=== PATIENT | female | born 1965 | race Caucasian/White ===

== ENCOUNTER 2018-07-16 15:56 | Emergency (ER) | payer MEDICAID ==
[~2018-07-16] VITALS: Ht 154.9 cm; Wt 57.7 kg
[2018-07-16 16:10] VITALS: BP 118/87
--- NOTE | 2018-07-16 17:15 | NUR ---
PT AMBULATED TO BED 11
--- NOTE | 2018-07-16 17:20 | NUR ---
53YO F BIB SELF FOR GENERLIZED BODY ACHESX 2 DAYS. PT STATES SOB WITH DRY NON PRODUACTIVE COUGH. LS CLEAR THROUGHOUT, ABD SOFT NON TENDER, PT DENIES ANY CP, N/V/D, FEVERS, STATES CHILLS. ER MADE AWARE. WILL CONTINUE TO MONIOTOR
[2018-07-16] MEDS ORDERED: NACL 0.9% 500 ML IV ONE (17:45)
[2018-07-16] MEDS ORDERED: KETOROLAC 30 MG/ML VIAL IVP ONE (17:45)
[2018-07-16 18:37] VITALS: BP 118/86
--- NOTE | 2018-07-16 18:37 | NUR ---
Patient discharged with v/s stable. Written and verbal after care instructions given and explained. Patient alert, oriented and verbalized understanding of instructions. Ambulatory with steady gait. All questions addressed prior to discharge. ID band removed. Patient advised to follow up with PMD. Rx of TAMIFLU given. Patient educated on indication of medication including possible reaction and side effects. Opportunity to ask questions provided and answered.
== END 2018-07-16 18:37 | disposition home or self-care (01) ==
LOC: MED 15:56
DX: J11.1 Influenza due to unidentified influenza virus with other respiratory manifestations (principal); J45.909 Unspecified asthma, uncomplicated; Z98.84 Bariatric surgery status
CPT/HCPCS: 81002; 81025; 96374; 99284; J1885; J7030

== ENCOUNTER 2019-02-28 07:55 | Emergency (ER) | payer MEDICAID ==
[~2019-02-28] VITALS: Ht 154.9 cm; Wt 59.9 kg
[2019-02-28 08:00] VITALS: BP 126/77
--- NOTE | 2019-02-28 08:00 | NUR ---
PT BIB SELF WITH C/O UNABLE TO SLEEP FOR LAST ONE WEEK. DENIES SOB, CHEST PAIN, NAUSEA, FEVER OR VOMITING. PT AAOX4, ABLE TO MAKE HER NEEDS KNOWN. STATES TO HAVE DOEN DENTAL WORK 4 CDAYS AGO, TAKING AMOXICILIN SINCE LAST 4 DAYS. ER Afshin Fuentes TO SEE THE PT.
--- NOTE | 2019-02-28 08:05 | NUR ---
Patient ambulated to bed 6. RN evaluating patient at bedside.
--- NOTE | 2019-02-28 08:26 | NUR ---
Dr. Mays evaluating patient at bedside.
[2019-02-28] MEDS ORDERED: LORazepam 2 MG/ML VIAL IM ONE (08:40)
[2019-02-28] MEDS ORDERED: hydrOXYzine HCL 25 MG TAB PO ONE (08:40)
[2019-02-28 09:53] LABS: BARBITURATE, URINE NEG. ng/ml (NEG <=200); BENZODIAZEPINE, URINE POS. ng/mL (NEG <=200); CANNABINOID, URINE NEG. ng/mL (NEG <=50); COCAINE, URINE NEG. ng/mL (NEG <=300); OPIATE, URINE NEG. ng/mL (NEG <=2000); PHENCYCLIDINE SCREEN,URINE NEG. ng/mL (NEG <=25)
--- NOTE | 2019-02-28 10:00 | NUR ---
PT ASKING IF SHE CAN GO HOME, MADE AWARE. STATES WILL DISCHARGE HER. PT NOTIFIED DR. ANDRES WORKING ON PTS DISCHARGE.
[2019-02-28 10:21] VITALS: BP 113/72
--- NOTE | 2019-02-28 10:21 | NUR ---
PT WALKED SELF TO THE CAR. STAEDY GAIT. STATES CAN DRIVE. WHEELED HER MOTHER TO CAR. PT VS STABLE AT DISCHARGE.
--- NOTE | 2019-02-28 10:21 | NUR ---
Patient discharged with v/s stable. Written and verbal after care instructions given and explained. Patient alert, oriented and verbalized understanding of instructions. Ambulatory with steady gait. All questions addressed prior to discharge. ID band removed. Patient advised to follow up with PMD. Rx oF VISTARIL given. Patient educated on indication of medication including possible reaction and side effects. Opportunity to ask questions provided and answered.
== END 2019-02-28 10:21 | disposition home or self-care (01) ==
LOC: MED 07:55
DX: G47.00 Insomnia, unspecified (principal); J45.909 Unspecified asthma, uncomplicated; F15.10 Other stimulant abuse, uncomplicated
CPT/HCPCS: 80305; 81002; 81025; 96372; 99283; J2060

== ENCOUNTER 2019-03-02 15:17 | Inpatient (IN) | payer MEDICAID ==
[~2019-03-02] VITALS: Ht 154.9 cm; Wt 54.4 kg
[2019-03-02 15:21] VITALS: BP 124/86
--- NOTE | 2019-03-02 15:25 | NUR ---
pt ambulated to er bed 04
--- NOTE | 2019-03-02 15:27 | NUR ---
53 Y FEMALE BIB SELF C/O NECK PAIN SINCE LAST NIGHT. PAIN 06/13. DENIES TRAUMA OR INJURY. +ROM. VSS AT THIS TIME. PT AA0X4. BED IS DOWN, LOCKED, BED RAIL X 1, ERMD TO SEE PT. PMH- ANXIETY, ASTHMA
--- NOTE | 2019-03-02 15:56 | NUR ---
mom at bedside
--- NOTE | 2019-03-02 16:35 | NUR ---
PT GOING TO CT VIA WHEELCHAIR
--- NOTE | 2019-03-02 16:54 | NUR ---
LABS DRAWN AT BEDSIDE AND GIVEN TO HOISTING MACHINE OPERATOR
[2019-03-02 17:08] LABS: HEMOGLOBIN 7.9 g/dL (12.0-16.0); LYMPHOCYTES # (AUTO) 0.5 K/uL (2.5-16.5); MEAN CORPUSCULAR VOLUME 68.1 fL (80-94); MONOCYTES # (AUTO) 0.2 K/uL (0.8-1.0)
[2019-03-02] MEDS ORDERED: AMOX500C25 PO (17:12)
[2019-03-02 17:14] LABS: BASOPHILS % (AUTO) 0.3 % (0.0-2.0); LYMPHOCYTES % (AUTO) 13.4 % (20.5-51.1); MEAN CORPUSCULAR HEMOGLOBIN 21 pg (27-31); MEAN CORPUSCULAR HGB CONC 31 g/dL (33-37); MONOCYTES % (AUTO) 4.9 % (1.7-9.3); NEUTROPHILS # (AUTO) 3.3 K/uL (1.8-7.7); NEUTROPHILS % (AUTO) 81.4 % (42.2-75.2); PLATELET COUNT (AUTO) 319 K/uL (140-450); RED BLOOD CELL COUNT(AUTO) 3.82 MIL/uL (4.20-5.40); RED CELL DISTRIBUTION WIDTH 17.4 % (11.6-13.7)
[2019-03-02 17:20] LABS: WHITE BLOOD COUNT (AUTO) 4.1 K/uL (4.8-10.8)
[2019-03-02 17:21] LABS: ANION GAP 15.7 (8-16); CARBON DIOXIDE 24.7 mmol/L (21-32); CREATININE 0.9 mg/dL (0.6-1.3); POTASSIUM 4.4 mmol/L (3.5-5.1)
[2019-03-02 17:27] LABS: ALBUMIN 3.7 g/dL (3.4-5.0); TOTAL BILIRUBIN 0.2 mg/dL (0.0-1.0)
--- NOTE | 2019-03-02 17:27 | NUR ---
VSS AT THIS TIME. PT AA0X4. SITTING IN BED WORKING ON WORD SEARCHES.
--- NOTE | 2019-03-02 17:38 | NUR ---
CHAPPERONED DR AT BEDSIDE FOR EXAM
[2019-03-02] MEDS ORDERED: fentaNYL 0.05 MG/ML VIAL IVP ONE (17:45)
[2019-03-02] MEDS ORDERED: methylPREDNISolone SS 125 MG/2 ML VIAL IVP ONE (17:55)
[2019-03-02] MEDS ORDERED: diphenhydrAMINE 50 MG/ML VIAL IVP ONE (17:55)
--- NOTE | 2019-03-02 18:00 | NUR ---
SIGNED CONSENT FORM FOR CT
--- NOTE | 2019-03-02 18:14 | NUR ---
[facility]
--- NOTE | 2019-03-02 18:24 | NUR ---
PT RETURNED FROM CT. PT AA0X4
--- NOTE | 2019-03-02 19:12 | NUR ---
NO ADVERSE REACTIONS AT THIS TIME. PT AA0X4. VSS AT THIS TIME.
[2019-03-02] MEDS ORDERED: LORazepam 2 MG/ML VIAL IM/IVP PRN (20:10)
[2019-03-02] MEDS ORDERED: DOCUSATE SODIUM 100 MG GELCAP PO PRN (20:10)
[2019-03-02] MEDS ORDERED: ONDANSETRON 4 MG/2 ML VIAL IM/IVP PRN (20:10)
[2019-03-02] MEDS ORDERED: ACETAMINOPHEN 325 MG TAB PO PRN (20:10)
[2019-03-02] MEDS: HYDROcodone/APAP 5/325 MG 1 TAB TAB PO PRN (20:32)
--- NOTE | 2019-03-02 20:33 | NUR ---
PT CO 5/10 PAIN. NORCO ADMINISTERED PO.
--- NOTE | 2019-03-02 20:46 | NUR ---
PATIENT ARRIVED, AMBULATORY TO BED, SKIN INTACT, IV IN LEFT AC 20 G, DRESSING SLIGHTLY BLOODY, BUT PATENT. V/S TAKEN BP 144/79 HR 76 TEMP 99.5 RR 14 EVEN AND NONLABORED, LUNG SOUNDS CLEAR, PATIENT REQUESTED BREATHING TREATMENT O2 SAT 99% ON RA. MRSA SCREEN COLLECTED AND SENT TO LAB, ADMISSION QUESTIONS ANSWERED, CALL LIGHT WITHIN REACH.
[2019-03-02 20:48] VITALS: BP 144/79
--- NOTE | 2019-03-02 20:50 | NUR ---
Patient will be admitted to care of [facility]. Admited to TELE. Will go to room 106B. Belongings list completed. Report to MERCEDES MCKEON.
[2019-03-02 20:58] LABS: PROTHROMBIN TIME 9.8 secs (10.8-13.4)
[2019-03-02 21:01] LABS: APPEARANCE,URINE CLEAR (CLEAR); BILIRUBIN,URINE NEGATIVE (NEGATIVE); BLOOD, URINE NEGATIVE (NEGATIVE); COLOR,URINE YELLOW (YELLOW); LEUKOCYTE ESTERASE ,URINE TRACE (NEGATIVE); NITRITE, URINE NEGATIVE (NEGATIVE); UGLUCOSE NEGATIVE (NEGATIVE)
[2019-03-02 21:18] LABS: MAGNESIUM 2.3 mg/dL (1.8-2.4); THYROID STIMULATING HORMONE 0.27 uIU/mL (0.34-3.74)
[2019-03-02 21:19] LABS: BARBITURATE, URINE NEGATIVE ng/ml (NEG <=200); BENZODIAZEPINE, URINE NEGATIVE ng/mL (NEG <=200); CANNABINOID, URINE NEGATIVE ng/mL (NEG <=50); COCAINE, URINE NEGATIVE ng/mL (NEG <=300); OPIATE, URINE NEGATIVE ng/mL (NEG <=2000); PHENCYCLIDINE SCREEN,URINE NEGATIVE ng/mL (NEG <=25)
[2019-03-02 21:32] LABS: RBC,URINE 0 /HPF (0-5); WBC,URINE 0-5 /HPF (0-5)
[2019-03-02 21:47] LABS: PHOSPHORUS 4.3 mg/dL (2.5-4.9)
[2019-03-02] MEDS ORDERED: LORA-476 PO (21:47)
[2019-03-02] MEDS ORDERED: SODIUM FERRIC GLUCONATE 125 MG in NACL 0.9% 100 ML IV SCH (22:10)
[2019-03-02] MEDS ORDERED: ASCORBIC ACID 500 MG TAB PO SCH (22:25)
[2019-03-02] MEDS ORDERED: NITROGLYCERIN 0.4 MG TAB SL PRN (22:35)
[2019-03-02] MEDS: ALBUTEROL SULFATE/IPRATROPIU 3 ML SOL IH PRN (22:39)
[2019-03-02] MEDS: MORPHINE SULFATE 2 MG/ML SYR IVP PRN (22:58)
--- NOTE | 2019-03-02 22:58 | NUR ---
GAVE MORPHINE FOR SEVERE PAIN, ADMINISTERED NS AT 60 ML/HR. EXPLAINED TO PATIENT OF NEED FOR OCCULT BLOOD, LEFT HAT IN TOILET
[2019-03-02] MEDS: SODIUM FERRIC GLUCONATE 12.5 MG/ML AMP IV ONE ×2 (22:59→23:00)
[2019-03-02] MEDS: NACL 0.9% 1,000 ML IV SCH (22:59)
--- NOTE | 2019-03-02 23:57 | NUR ---
FERRLECIT INFUSING WILL GIVE ROCEPHIN ONCE COMPLETED
[2019-03-03] VITALS: BP 135/68
[2019-03-03] MEDS ORDERED: cefTRIAXone 1,000 MG VIAL ONE (01:52)
--- NOTE | 2019-03-03 01:55 | NUR ---
DUE ROCEPHIN GIVEN
[2019-03-03] MEDS: ALBUTEROL SULFATE/IPRATROPIU 3 ML SOL IH PRN ×2 (02:35→10:11)
--- NOTE | 2019-03-03 03:12 | NUR ---
PATIENT C/O PAIN WILL GIVE MORPHINE
[2019-03-03] MEDS: MORPHINE SULFATE 2 MG/ML SYR IVP PRN (03:30)
[2019-03-03 04:00] VITALS: BP 129/86
--- NOTE | 2019-03-03 05:19 | NUR ---
SCD APPLIED, EDUCATION PROVIDED
--- NOTE | 2019-03-03 06:00 | NUR ---
EKG DONE RT AT BEDSIDE
[2019-03-03 07:17] LABS: CARBON DIOXIDE 23.6 mmol/L (21-32); CREATININE 0.9 mg/dL (0.6-1.3); POTASSIUM 4.6 mmol/L (3.5-5.1)
[2019-03-03 07:24] LABS: CHOL/HDL RATIO 2.9 (1-4.5)
--- NOTE | 2019-03-03 07:24 | NUR ---
ENDORSED PATIENT TO DAY SHIFT NURSE NILDA, PATIENT STABLE
[2019-03-03 07:54] LABS: BASOPHILS % (AUTO) 0.2 % (0.0-2.0); HEMATOCRIT 24.9 % (36-48); HEMOGLOBIN 7.6 g/dL (12.0-16.0); LYMPHOCYTES # (AUTO) 0.5 K/uL (2.5-16.5); LYMPHOCYTES % (AUTO) 11.2 % (20.5-51.1); MEAN CORPUSCULAR HEMOGLOBIN 21 pg (27-31); MEAN CORPUSCULAR HGB CONC 30 g/dL (33-37); MEAN CORPUSCULAR VOLUME 68.3 fL (80-94); MONOCYTES # (AUTO) 0.2 K/uL (0.8-1.0); MONOCYTES % (AUTO) 4.2 % (1.7-9.3); NEUTROPHILS % (AUTO) 84.4 % (42.2-75.2); PLATELET COUNT (AUTO) 295 K/uL (140-450); RED BLOOD CELL COUNT(AUTO) 3.65 MIL/uL (4.20-5.40); RED CELL DISTRIBUTION WIDTH 17.1 % (11.6-13.7); WHITE BLOOD COUNT (AUTO) 4.7 K/uL (4.8-10.8)
[2019-03-03 08:00] VITALS: BP 128/75
[2019-03-03] MEDS ORDERED: FERROUS SULFATE 325 MG TABEC PO SCH (08:00)
[2019-03-03] MEDS: LACTOBACILLUS RHAMNOSUS GG 1 EACH CAP PO SCH (08:09)
[2019-03-03] MEDS: HYDROcodone/APAP 5/325 MG 1 TAB TAB PO PRN (08:10)
[2019-03-03] MEDS: ASCORBIC ACID 500 MG TAB PO SCH (08:16)
--- NOTE | 2019-03-03 08:29 | NUR ---
RECEIVED BED SIDE REPORT FROM SENIOR PROJECT MANAGER RN SUMMER. PT AWAKE, ON RA IN NO RESPIRATORY DISTRESS. PT MADE AWARE OF OCCULT BLOOD NEEDS TO BE COLLECTED. HAT AND SPECIMEN CUP IN BATHROOM. L AC 20G NS AT 60ML/HR. WILL CONTINUE TO MONITOR
[2019-03-03] MEDS ORDERED: ASPIRIN 81 MG TAB.CHEW PO SCH (09:00)
[2019-03-03] MEDS ORDERED: ASCORBIC ACID 500 MG TAB PO SCH (09:00)
[2019-03-03] MEDS ORDERED: LISINOPRIL 5 MG TAB PO SCH (09:00)
[2019-03-03] MEDS ORDERED: METOPROLOL 25 MG TAB PO SCH (09:00)
--- NOTE | 2019-03-03 09:15 | NUR ---
PT STILL COMPLAINS ON 04/13 SHARP NECK PAIN. PT STATED THAT NORCO DID NOT HELP. NOTIFIED ABOUT PT. NO CHANGE IN ORDERS
--- NOTE | 2019-03-03 11:05 | NUR ---
ORDERED TORADOL AFTER TELLING HIM THAT PT'S PAIN DOES NOT GO AWAY WITH MORPHINE OR NORCO. WILL GIVE PER MD ORDER. PT STILL COMPLAINING OF 8/10 SHARP NECK PAIN RADIATING TO OTHER SIDE OF NECK. DENIES CHEST PAIN
[2019-03-03] MEDS ORDERED: KETOROLAC 15 MG/ML VIAL IM SCH (11:30)
[2019-03-03 12:00] VITALS: BP 130/69
[2019-03-03] MEDS: NACL 0.9% 1,000 ML IV SCH (12:16)
--- NOTE | 2019-03-03 12:26 | NUR ---
GAVE TORADOL PER MD ORDER. WILL RE-ASSESS PAIN WITHIN 1 HOUR
--- NOTE | 2019-03-03 13:06 | NUR ---
[facility] REFERRAL RECEIVED ON 03/03/19 FOR UNKNOWN REASON AND N/A NUTRITIONAL HISTORY PER RN INITIAL ASSESSMENT NOTES. REFERRAL REASON DOES NOT MEET HIGH RISK CRITERIA PER HOSPITAL POLICY. PATIENT WILL BE SEEN AND ASSESSED ACCORDING TO THE NUTRITION CARE POLICY. PATIENT HAS BEEN SCREENED AND CATEGORIZED MODERATE NUTRITION RISK. PATIENT WILL BE SEEN WITHIN 3-5 DAYS OF ADMISSION. 03/05/19DAVID AYALA MBA, RD
[2019-03-03] MEDS ORDERED: oxyCODONE/APAP 5/325 MG 1 TAB TAB PO PRN (13:40)
[2019-03-03] MEDS: ALBUTEROL SULFATE/IPRATROPIU 3 ML SOL IH SCH ×2 (13:51→19:55)
[2019-03-03] MEDS ORDERED: SODIUM FERRIC GLUCONATE 125 MG in NACL 0.9% 100 ML IV SCH (15:00)
[2019-03-03 16:00] VITALS: BP 109/56
[2019-03-03] MEDS: SENNA 8.6 MG TAB PO SCH ×2 (16:33→21:00)
[2019-03-03] MEDS: LACTULOSE 20 GM/30 ML UDC PO SCH (16:34)
[2019-03-03] MEDS: METOCLOPRAMIDE 10 MG/2 ML INJ VIAL IVP SCH ×2 (16:34→22:19)
--- NOTE | 2019-03-03 16:49 | NUR ---
PT MADE AWARE THAT SHE WILL HAVE ECG AND COLONOSCOPY TOMORROW. PT ON CLEAR LIQUID DIET. NPO FOR BREAKFAST. GAVE SENNA AND LACTULOSE PER MD ORDER
--- NOTE | 2019-03-03 19:15 | NUR ---
RECEIVED BEDSIDE REPORT FROM DAY SHIFT NURSE. PATIENT IS AWAKE, ALERT, AND COOPERATIVE. RESPIRATION EVEN UNLABORED ON ROOM AIR. NO DISTRESS NOTED. SKIN IS WARM AND DRY. IV PATENT AND INTACT. DENIES PAIN. PATIENT IS AMBULATORY AND ABLE TO MAKE NEEDS KNOWN. PLAN OF CARE WAS DISCUSSED. ALL SAFETY MEASURES IN PLACE. BED IS AT LOW POSITION. CALL LIGHT WITHIN REACH AND VERBALIZES ITS USE. WILL CONTINUE TO MONITOR.
--- NOTE | 2019-03-03 19:36 | NUR ---
GAVE BED SIDE REPORT FROM SALES REPRESENTATIVE PUBLICATIONS LINDA MONK. PT IN STABLE CONDITION
[2019-03-03 20:00] VITALS: BP 109/66
--- NOTE | 2019-03-03 20:00 | NUR ---
INITIAL ASSESSMENT DONE. VITALS WERE TAKEN. NO DISTRESS NOTED. WILL CONTINUE TO MONITOR.
[2019-03-03] MEDS: SUPREP BOWEL PREP KIT 354 ML SOLN.RECON PO SCH (20:45)
[2019-03-03] MEDS ORDERED: ATORVASTATIN 20 MG TAB PO SCH (21:00)
[2019-03-03] MEDS ORDERED: ZOLPIDEM 5 MG TAB PO SCH (21:00)
--- NOTE | 2019-03-03 21:00 | NUR ---
ALL SCHEDULED MEDS WERE GIVEN PER ORDER. PATIENT REFUSED SENNA MEDS. PER PATIENT SHE'S WANTS HER MEDS TO BE IN IV FORM. DR. THOMPSON (RESIDENT) IS AWARE OF THE SITUATION. NO NEW ORDERS. WILL CONTINUE TO MONITOR.
--- NOTE | 2019-03-03 22:00 | NUR ---
ENCOURAGE PATIENT TO FINISH HER BOWEL PREP MEDICINE. WILL CONTINUE TO MONITOR.
--- NOTE | 2019-03-03 23:40 | NUR ---
PATIENT TOOK OF HER SCD'S AT THIS MOMENT. EDUCATE THE RISK AND BENEFITS OF IT X2 STILL REFUSED. WILL CONTINUE TO MONITOR
[2019-03-04] VITALS: BP 105/64
--- NOTE | 2019-03-04 | NUR ---
VITALS WERE TAKEN. PATIENT CONDITION STABLE. NO DISTRESS NOTED. WILL CONTINUE TO MONITOR
--- NOTE | 2019-03-04 02:00 | NUR ---
CHECKED PATIENT. PATIENT SLEEPING RESPIRATION EVEN UNLABORED ON ROOM AIR. NO DISTRESS NOTED. WILL CONTINUE TO MONITOR.
[2019-03-04 04:00] VITALS: BP 100/64
--- NOTE | 2019-03-04 04:00 | NUR ---
VITALS WERE TAKEN. PATIENT CONDITION STABLE. PATIENT HAD 4 BOWEL MOVEMENTS AFTER TAKING THE BOWEL PREP KIT. WILL CONTINUE TO MONITOR.
[2019-03-04] MEDS: NACL 0.9% 1,000 ML IV SCH (05:30)
[2019-03-04] MEDS: METOCLOPRAMIDE 10 MG/2 ML INJ VIAL IVP SCH (06:02)
[2019-03-04 07:07] LABS: BASOPHILS % (AUTO) 0.4 % (0.0-2.0); EOSINOPHILS % (AUTO) 0.4 % (0.0-4.0); HEMATOCRIT 24.4 % (36-48); HEMOGLOBIN 7.4 g/dL (12.0-16.0); LYMPHOCYTES # (AUTO) 2.1 K/uL (2.5-16.5); LYMPHOCYTES % (AUTO) 42.1 % (20.5-51.1); MEAN CORPUSCULAR HEMOGLOBIN 21 pg (27-31); MEAN CORPUSCULAR HGB CONC 30 g/dL (33-37); MEAN CORPUSCULAR VOLUME 69.2 fL (80-94); MONOCYTES # (AUTO) 0.4 K/uL (0.8-1.0); NEUTROPHILS # (AUTO) 2.4 K/uL (1.8-7.7); NEUTROPHILS % (AUTO) 49.1 % (42.2-75.2); PLATELET COUNT (AUTO) 267 K/uL (140-450); RED BLOOD CELL COUNT(AUTO) 3.52 MIL/uL (4.20-5.40); RED CELL DISTRIBUTION WIDTH 18.1 % (11.6-13.7)
[2019-03-04 07:10] LABS: ANION GAP 14.1 (8-16); CARBON DIOXIDE 24.9 mmol/L (21-32); CREATININE 0.9 mg/dL (0.6-1.3)
[2019-03-04] MEDS: ALBUTEROL SULFATE/IPRATROPIU 3 ML SOL IH SCH ×2 (07:11→13:40)
[2019-03-04 07:22] LABS: PHOSPHORUS 4.5 mg/dL (2.5-4.9)
--- NOTE | 2019-03-04 07:23 | NUR ---
ENDORSED PATIENT TO DAY SHIFT NURSE. PATIENT CONDITION STABLE AT THIS TIME.
--- NOTE | 2019-03-04 07:25 | NUR ---
RECEIVED REPORT FROM HYDROELECTRIC PLANT STRUCTURAL ENGINEER NURSE. PT AWAKE, LYING IN BED, ORIENTED X4. RESPIRATIONS EVEN AND UNLABORED ON RA. IV ON LT AC 20 GA RUNNING IVF PER ORDER, DRESSING CLEAN, INTACT AND DRY. RADIAL PULSE 107, REGULAR AND EVEN. BOWEL SOUNDS ACTIVE, LBM 7/1, STOOL COLOR REPORTED "BROWN AND LIQUID." SKIN COLOR IS APPROPRIATE TO ETHNICITY, WARM TO TOUCH, SKIN IS INTACT. NO EDEMA NOTED TO EXTREMITIES. REVIEWED POC WITH PT, PT VERBALIZED UNDERSTANDING. WILL CONTINUE TO MONITOR.
[2019-03-04 08:00] VITALS: BP 100/64
[2019-03-04] MEDS: LACTULOSE 20 GM/30 ML UDC PO SCH ×2 (08:16→13:00)
[2019-03-04] MEDS: SENNA 8.6 MG TAB PO SCH ×2 (08:17→13:00)
[2019-03-04] MEDS: SUPREP BOWEL PREP KIT 354 ML SOLN.RECON PO SCH ×2 (08:20→09:00)
[2019-03-04] MEDS: LACTOBACILLUS RHAMNOSUS GG 1 EACH CAP PO SCH (08:22)
[2019-03-04] MEDS: ASCORBIC ACID 500 MG TAB PO SCH (08:22)
--- NOTE | 2019-03-04 08:24 | NUR ---
DOCTOR AT BEDSIDE. PT REFUSING VIT C, LACTOBACILLUS, AND NORCO FOR PAIN. REQUESTED IV MED FOR PAIN. AWAITING FOR ORDERS. PT VERBALIZED "I DON'T LIKE DRINKING ANYTHING LIQUID, I DON'T WANT TO DRINK THAT ANYMORE" REFERRING TO SUPREP BOWEL PREP AND LACTULOSE. EXPLAINED TO PT THAT IT IS NEEDED FOR THE PROCEDURE LATER TODAY. PT STILL REFUSES DESPITE BENEFITS EXPLAINED. ENCOURAGED TO DRINK A LITTLE AT A TIME. LEFT SUPREP BOWEL PREP IN PT BEDSIDE. WILL REASSESS AT A LATER TIME.
[2019-03-04 09:05] LABS: MAGNESIUM 2.2 mg/dL (1.8-2.4)
[2019-03-04] MEDS ORDERED: KETOROLAC 15 MG/ML VIAL IVP PRN (09:10)
[2019-03-04] MEDS ORDERED: MORPHINE SULFATE 2 MG/ML SYR IVP PRN (09:10)
--- NOTE | 2019-03-04 09:30 | NUR ---
P.T. NOTES UNABLE TO DO EVAL DUE TO HER REFUSAL. STATES: "I'M A PHYSICAL THERAPIST WELL AND I DON'T NEED THERAPY!" HER NURSE ADAM AND CHARGE NURSE WAS MADE AWARE.
--- NOTE | 2019-03-04 09:30 | NUR ---
PT IS REFUSING TO WALK WITH PT. REVIEWED BENEFITS WITH PT, BUT STILL REFUSING.
--- NOTE | 2019-03-04 09:36 | NUR ---
PT REPORTED THAT DR. VILLARREAL SPOKE WITH HER. PT STILL REFUSING TO DRINK BOWEL PREP AT THIS TIME. GIVEN PAIN MEDICATION VIA IV. RESPIRATIONS EVEN AND UNLABORED. WILL CONTINUE TO MONITOR.
--- NOTE | 2019-03-04 11:12 | NUR ---
SPOKE WITH DR. FIGUEROA. RECEIVED ORDERS TO DISCONTINUE EGD/COLONOSCOPY TODAY D/T PT REFUSAL. DR. VILLARREAL NOTIFIED.
[2019-03-04] MEDS ORDERED: FERR325E14 PO (12:16)
[2019-03-04] MEDS ORDERED: ALBU2.5V IH (12:17)
[2019-03-04] MEDS ORDERED: cefTRIAXone 1,000 MG in LIDOCAINE MPF 1% - 5 mL VIAL 2.1 ML IM SCH (13:45)
[2019-03-04] MEDS ORDERED: LIDOCAINE MPF 1% - 5 mL VIAL 0 ML ONE (14:08)
--- NOTE | 2019-03-04 14:15 | NUR ---
PT GIVEN DISCHARGE AND MEDICATION INSTRUCTIONS, AND FOLLOW-UP APPOINTMENTS. PT AGREED AND VERBALIZED UNDERSTANDING. ALL PAPERWORKS SIGNED, ALL BELONGINGS IN PATIENT POSSESSION. IV DISCONTINUED, CANNULA INTACT, NO ACTIVE BLEEDING NOTED. OFFERED W/C, PT REFUSED. PT AMBULATED OUT OF UNIT WITH STEADY GAIT, ACCOMPANIED BY NURSE. PT IN STABLE CONDITION.
[2019-03-06 06:09] LABS: FOLIC ACID 10.9 ng/mL (>3.0)
== END 2019-03-04 14:15 | disposition home or self-care (01) | DRG 203 ==
LOC: MED 15:17 → MTU 20:10
PROVIDERS: ADMIT General Practice; ATTEND General Practice
DX: M94.0 Chondrocostal junction syndrome [Tietze] (principal); D50.9 Iron deficiency anemia, unspecified; N39.0 Urinary tract infection, site not specified; J45.909 Unspecified asthma, uncomplicated; M54.2 Cervicalgia; J98.11 Atelectasis; E05.80 Other thyrotoxicosis without thyrotoxic crisis or storm; F41.1 Generalized anxiety disorder; Z85.038 Personal history of other malignant neoplasm of large intestine; Z98.891 History of uterine scar from previous surgery; Z88.1 Allergy status to other antibiotic agents; Z91.14 Patient's other noncompliance with medication regimen
CPT/HCPCS: 36415; 71045; 71275; 72125; 80048; 80053; 80305; 81001; 82272; 82607; 82728; 82746; 83036; 83540; 83690; 83735; 83880; 84100; 84439; 84443; 84484; 85025; 85045; 85379; 85610; 85730; 86886; 86900; 86901; 87081; 87086; 93005; 93970; 94640; 96374; 96375; 99285; J0696; J1200; J1885; J2001; J2270; J2765; J2916; J2930; J3010; J7030; J7060; J7620; Q0092; Q9967

== ENCOUNTER 2019-03-31 11:48 | Emergency (ER) | payer MEDICAID ==
[~2019-03-31] VITALS: Ht 154.9 cm; Wt 54.4 kg
[~2019-03-31 11:48] MED LIST: ALBU2.5V IH; FERR325E14 PO; LORA-476 PO
[2019-03-31 12:07] VITALS: BP 101/76
--- NOTE | 2019-03-31 13:03 | NUR ---
PT PRESENTS TO ED WITH C/O NON-PRODUCTIVE COUGH AND CONGESTION X 3 DAYS AND LOW BACK PAIN X 2 DAYS, DENIES DYSURIA OR ANY OTHER URINARY SYMPTOM. DENIES INJURY. VSS. RR EVEN AND UNLABORED; O2 SAT 99% ON RA. PT STATES PAIN IS 10/10 AT THIS TIME.
[2019-03-31] MEDS ORDERED: KETOROLAC 60 MG/2 ML VIAL IM ONE (13:45)
[2019-03-31 14:06] VITALS: BP 110/73
== END 2019-03-31 14:07 | disposition home or self-care (01) ==
LOC: MED 11:48
DX: M54.5 Low back pain (principal); G89.29 Other chronic pain; J45.909 Unspecified asthma, uncomplicated; Z79.899 Other long term (current) drug therapy
CPT/HCPCS: 81002; 81025; 96372; 99283; J1885

== ENCOUNTER 2019-04-07 10:22 | Emergency (ER) | payer MEDICAID ==
[~2019-04-07] VITALS: Ht 154.9 cm; Wt 51.7 kg
[2019-04-07 10:27] VITALS: BP 131/73
[2019-04-07] MEDS ORDERED: LORazepam 1 MG TAB PO ONE (10:35)
[2019-04-07 11:00] VITALS: BP 127/72
== END 2019-04-07 11:00 | disposition home or self-care (01) ==
LOC: MED 10:22
DX: J40 Bronchitis, not specified as acute or chronic (principal); F41.9 Anxiety disorder, unspecified; J02.9 Acute pharyngitis, unspecified; J45.909 Unspecified asthma, uncomplicated; Z85.038 Personal history of other malignant neoplasm of large intestine; Z79.899 Other long term (current) drug therapy
CPT/HCPCS: 99284

== ENCOUNTER 2019-04-14 06:58 | Emergency (ER) | payer MEDICAID ==
[~2019-04-14] VITALS: Ht 154.9 cm; Wt 51.7 kg
[2019-04-14 07:06] VITALS: BP 120/78
--- NOTE | 2019-04-14 07:06 | NUR ---
TO BED # 09 AMBULATORY
--- NOTE | 2019-04-14 07:16 | NUR ---
54 y/o female c/o of sore throat x 2 days. No noted exudate or accessory muscle use. Throat is slight red. Patient states that she has a cough but is nonproductive. Speech is clear. No difficulty with swallowing. Pain is at an 8/10 sore. PMH:Colon Cancer remission, carpal tunnel syndrome, bone spurs Rx:tensilon pearls allergies: none surgical hx:
--- NOTE | 2019-04-14 07:16 | NUR ---
Note undone in EDM - 04/14/19 at 0758 by EMILY 54 y/o female c/o of sore throat x 2 days. No noted exudate or accessory muscle use. Throat is slight red. Speech is clear. No difficulty with swallowing. Pain is at an 8/10 sore. PMH:Colon Cancer remission, carpal tunnel syndrome, bone spurs Rx:tensilon pearls allergies: none surgical hx:
--- NOTE | 2019-04-14 07:16 | NUR ---
Note undone in EDM - 04/14/19 at 0728 by EMILY 54 y/o female c/o of sore throat x 2 days. No noted exudate or accessory muscle use. Throat is slight red. Speech is clear. Pain is at an 8/10 sore. PMH:Colon Cancer remission, carpal tunnel syndrome, bone spurs Rx:tensilon pearls allergies: none surgical hx:
--- NOTE | 2019-04-14 08:03 | NUR ---
Patient discharged with v/s stable. Written and verbal after care instructions given and explained. Patient alert, oriented and verbalized understanding of instructions. Ambulatory with steady gait. All questions addressed prior to discharge. ID band removed. Patient advised to follow up with PMD. Rx of prednisone 20mg and ibuprofen 600mg given. Patient educated on indication of medication including possible reaction and side effects. Opportunity to ask questions provided and answered.
[2019-04-14 08:04] VITALS: BP 120/78
== END 2019-04-14 08:00 | disposition home or self-care (01) ==
LOC: MED 06:58
DX: J02.8 Acute pharyngitis due to other specified organisms (principal); B97.89 Other viral agents as the cause of diseases classified elsewhere; J45.909 Unspecified asthma, uncomplicated; Z85.038 Personal history of other malignant neoplasm of large intestine; Z79.899 Other long term (current) drug therapy
CPT/HCPCS: 99283

== ENCOUNTER 2019-04-22 22:24 | Emergency (ER) | payer MEDICAID ==
[~2019-04-22] VITALS: Ht 154.9 cm; Wt 51.7 kg
[2019-04-22 22:29] VITALS: BP 139/92
--- NOTE | 2019-04-22 22:32 | NUR ---
PT AMULATED TO BED 3.
--- NOTE | 2019-04-22 22:38 | NUR ---
PT 54/F CC: CHANGE IN BOWEL HABITS. GAS AND SOFT MUSHY STOOLS NOTED. NO ALLERGIES OR NEW FOODS NOTED. EVEN UNLABORED BREATHING. ABLE TO VERBALIZE NEEDS. AFEBRILE. SO AT BEDSIDE. WILL CONTINUE TO MONITOR.
--- NOTE | 2019-04-22 22:43 | NUR ---
Dr. Rosenberg examining patient.
--- NOTE | 2019-04-22 23:19 | NUR ---
PT RETURNED TO UNIT VIA W/C
[2019-04-22] MEDS ORDERED: KETOROLAC 60 MG/2 ML VIAL IM ONE (23:35)
[2019-04-23 00:10] VITALS: BP 139/92
== END 2019-04-23 00:15 | disposition home or self-care (01) ==
LOC: MED 22:24
DX: K59.00 Constipation, unspecified (principal); R10.30 Lower abdominal pain, unspecified; J44.9 Chronic obstructive pulmonary disease, unspecified; F41.9 Anxiety disorder, unspecified; Z85.038 Personal history of other malignant neoplasm of large intestine; Z98.890 Other specified postprocedural states; Z98.84 Bariatric surgery status; Z79.51 Long term (current) use of inhaled steroids; Z79.899 Other long term (current) drug therapy
CPT/HCPCS: 74022; 96372; 99283; J1885

== ENCOUNTER 2019-05-05 17:11 | Emergency (ER) | payer MEDICAID ==
[~2019-05-05] VITALS: Ht 154.9 cm; Wt 52.2 kg
[2019-05-05 17:14] VITALS: BP 113/99
--- NOTE | 2019-05-05 17:19 | NUR ---
PT. TAKEN TO BED 7 VIA W/C
--- NOTE | 2019-05-05 17:38 | NUR ---
DR. NEGRON AT BEDSIDE EVALUATING PT.
[2019-05-05] MEDS ORDERED: LORazepam 2 MG/ML VIAL IM ONE (17:40)
--- NOTE | 2019-05-05 17:40 | NUR ---
C/O ACUTE ANXIETY ATTACK WELL A TREMOR TO THE R ARM STARTING TODAY. PT STATES SHE TYPICALLY TAKES ATIVAN FOR HER ANXIETY BUT RAN OUT 10 DAYS AGO. PER PT , THIS IS A TYPICAL SYMPTOM OF HER ANXIETY. PT DENIES N/V/CHEST PAIN. PT SKIN IS COOL/DRY. RESPIRATIONS ARE EVEN AND UNLABORED. SIDE RAIL UP X1, BED IN LOW POSITION. AT BEDSIDE.
[2019-05-05 18:40] VITALS: BP 113/99
== END 2019-05-05 18:20 | disposition home or self-care (01) ==
LOC: MED 17:11
DX: F41.9 Anxiety disorder, unspecified (principal); J44.9 Chronic obstructive pulmonary disease, unspecified; Z79.899 Other long term (current) drug therapy; Z85.038 Personal history of other malignant neoplasm of large intestine
CPT/HCPCS: 96372; 99284; J2060

== ENCOUNTER 2019-05-17 15:02 | Emergency (ER) | payer MEDICAID ==
[~2019-05-17] VITALS: Ht 154.9 cm; Wt 60.3 kg
[2019-05-17 15:11] VITALS: BP 122/74
--- NOTE | 2019-05-17 15:31 | NUR ---
C/O DRY COUGH X3 WEEK AND ANKLE PAIN X1 DAY. PT REPORTS WALKING DOWN STAIRS AND ROLLING ANKLE. 9/10 SHARP PAIN THAT RADIATES FROM LT ANKLE UP LT LEG. SWELLING OVER LT ANKLE MALLEOLUS. NO CHANGE IN SEVERITY OF COUGH IN THE LAST 3 WEEKS. NO SNEEZING, RUNNY NOSE. LUNGS CTAB. MEDHX:ASTHMA, ANXIETY RX:DENIES
--- NOTE | 2019-05-17 16:07 | NUR ---
Patient being evaluated by physician at bedside.
[2019-05-17] MEDS ORDERED: KETOROLAC 30 MG/ML VIAL IM ONE (16:15)
--- NOTE | 2019-05-17 16:36 | NUR ---
EMT AT BEDSIDE WITH CRUTCHES.
--- NOTE | 2019-05-17 16:41 | NUR ---
PLACED KAR WRAP ON PATIENT'S LEFT ANKLE. SIZED CRUTCHES TO PATIENT
--- NOTE | 2019-05-17 16:41 | NUR ---
Patient discharged with v/s stable. Written and verbal after care instructions given and explained. Patient alert, oriented and verbalized understanding of instructions. Ambulatory WITH CRUTCHES. All questions addressed prior to discharge. ID band removed. Patient advised to follow up with PMD. Rx of MOTRIN given. Patient educated on indication of medication including possible reaction and side effects. Opportunity to ask questions provided and answered.
[2019-05-17 16:43] VITALS: BP 112/73
--- NOTE | 2019-05-17 16:43 | NUR ---
WHEELCHAIR ASSISTED TO CAR.
== END 2019-05-17 16:41 | disposition home or self-care (01) ==
LOC: MED 15:02
DX: S93.402A Sprain of unspecified ligament of left ankle, initial encounter (principal); S39.012A Strain of muscle, fascia and tendon of lower back, initial encounter; J44.9 Chronic obstructive pulmonary disease, unspecified; F41.9 Anxiety disorder, unspecified; Z85.038 Personal history of other malignant neoplasm of large intestine; Z79.51 Long term (current) use of inhaled steroids; Z79.899 Other long term (current) drug therapy; W01.0XXA Fall on same level from slipping, tripping and stumbling without subsequent striking against object, initial encounter; Y92.009 Unspecified place in unspecified non-institutional (private) residence as the place of occurrence of the external cause; Y93.89 Activity, other specified; Y99.8 Other external cause status
CPT/HCPCS: 72100; 73610; 96372; 99283; J1885; Q0092

== ENCOUNTER 2019-05-19 09:57 | Emergency (ER) | payer MEDICAID ==
[~2019-05-19] VITALS: Ht 154.9 cm; Wt 54.4 kg
--- NOTE | 2019-05-19 10:01 | NUR ---
PT TO ER BED 2
[2019-05-19 10:02] VITALS: BP 146/83
--- NOTE | 2019-05-19 10:19 | NUR ---
PT BIB SELF C/O LT ANKLE PAIN. THROBING LATERAL ANKLE PAIN THAT RADIATES UP LT LEG AT 10/10, PAIN INCREASES WITH WALKING AND ADLS, TX W/ MOTRIN, ELEVATION, AND ICE W/ NO RELIEF. + SWELLING AROUND LATERAL LT ANKLE, - ERYTHEMA, - BRUISING, - DEFORMITY, + CMS, SEEN IN OUR ER 05/17/2019 FOR SAME SYMPTOMS. PT ALSO REPORTS COLD X3 DAYS W/ DRY COUGH, RR EVEN, NON LABORED, AND BREATH SOUNDS CLEAR THROUGHOUT. INJURED LEFT ANKLE BY MISSING A STEP WHEN GOING DOWN STAIRS HX--ANXIETY, ASTHMA RX---MOTRIN,
[2019-05-19] MEDS ORDERED: HYDROcodone/APAP 5/325 MG 1 TAB TAB PO ONE (10:20)
--- NOTE | 2019-05-19 11:04 | NUR ---
WRAPPED PT LT ANKLE WITH KAR WRAP, AND APPLIED ORTHO SHOE, +CMS DISTAL TO LT ANKLE.
== END 2019-05-19 11:04 | disposition home or self-care (01) ==
LOC: MED 09:57
DX: S93.402A Sprain of unspecified ligament of left ankle, initial encounter (principal); R50.9 Fever, unspecified; J44.9 Chronic obstructive pulmonary disease, unspecified; Z79.899 Other long term (current) drug therapy; Z85.038 Personal history of other malignant neoplasm of large intestine; Z98.890 Other specified postprocedural states; W01.0XXA Fall on same level from slipping, tripping and stumbling without subsequent striking against object, initial encounter; Y93.89 Activity, other specified; Y92.89 Other specified places as the place of occurrence of the external cause; Y99.8 Other external cause status
CPT/HCPCS: 99283

== ENCOUNTER 2019-05-29 15:21 | Emergency (ER) | payer MEDICAID ==
[~2019-05-29] VITALS: Ht 154.9 cm; Wt 58.2 kg
[2019-05-29 15:47] VITALS: BP 129/92
[2019-05-29 17:30] VITALS: BP 129/92
== END 2019-05-29 17:30 | disposition left against medical advice (07) ==
LOC: MED 15:21
DX: R42 Dizziness and giddiness (principal); J45.909 Unspecified asthma, uncomplicated; Z85.038 Personal history of other malignant neoplasm of large intestine; Z98.84 Bariatric surgery status; Z79.899 Other long term (current) drug therapy
CPT/HCPCS: 93005; 99281; 99283

== ENCOUNTER 2019-06-04 21:50 | Emergency (ER) | payer MEDICAID ==
[~2019-06-04] VITALS: Ht 154.9 cm; Wt 58.1 kg
[2019-06-04 21:58] VITALS: BP 120/79
[2019-06-04] MEDS: KETOROLAC 60 MG/2 ML VIAL IM ONE (22:19)
[2019-06-04 23:28] VITALS: BP 127/77
== END 2019-06-04 23:27 | disposition home or self-care (01) ==
LOC: MED 21:50
DX: S93.401A Sprain of unspecified ligament of right ankle, initial encounter (principal); J44.9 Chronic obstructive pulmonary disease, unspecified; Z85.038 Personal history of other malignant neoplasm of large intestine; Z98.890 Other specified postprocedural states; Z79.899 Other long term (current) drug therapy; W08.XXXA Fall from other furniture, initial encounter; Y93.89 Activity, other specified; Y92.89 Other specified places as the place of occurrence of the external cause; Y99.8 Other external cause status
CPT/HCPCS: 73610; 96372; 99283; J1885; Q0092

== ENCOUNTER 2019-10-04 06:36 | Emergency (ER) | payer MEDICAID ==
[~2019-10-04] VITALS: Ht 154.9 cm; Wt 56.7 kg
[2019-10-04 06:41] VITALS: BP 115/85
--- NOTE | 2019-10-04 06:41 | NUR ---
PT AMBULATED TO ER BED 7
--- NOTE | 2019-10-04 06:47 | NUR ---
54 Y/O FEMALE C/O LT ANKLE SWELLING AND PAIN X 5 DAYS. 10/10 THROBBING PAIN. INCREASED PAIN W/ AMBULATION. MINIMAL BRUISING NOTED. DENIES TRAUMA/INJURY TO ANKLE. PT STATES SHE TOOK TYLENOL AT 2200 WITH NO PAIN RELIEF. +CMS. CAP REFILL <2 SECONDS. PT SITTING UPRIGHT IN BED CALM AND PLEASANT. AT BEDSIDE. VSS. MEDHX: ASTHMA, DEPRESSION, ANXIETY ALLERGIES: NKA
--- NOTE | 2019-10-04 07:11 | NUR ---
RECIEVED REPORT FROM LINDA MICHAELS. INTRODUCED MYSELF TO PATIENT. PAIN IS 3/10 AT REST. LEFT ANKLE SLIGHTY SWOLLEN, NO REDNESS OR WARMTH.
--- NOTE | 2019-10-04 07:46 | NUR ---
DR NEGRON AT BEDSIDE.
--- NOTE | 2019-10-04 07:49 | NUR ---
DR LAWLER EVALUATING PT AT BEDSIDE
--- NOTE | 2019-10-04 07:57 | NUR ---
RAD AT BEDSIDE
--- NOTE | 2019-10-04 08:00 | NUR ---
Daniel michael in [facility] - 10/04/19 at 0800 by ANDRIA XRAY AT BEDSIDE
[2019-10-04] MEDS ORDERED: KETOROLAC 60 MG/2 ML VIAL IM ONE (10:10)
--- NOTE | 2019-10-04 10:28 | NUR ---
TORADOL IM ADMINISTERED FOR PAIN/INFLAMMATION
--- NOTE | 2019-10-04 10:30 | NUR ---
EMT APPLIED ORTHO SHOE PER MD ORDERS
[2019-10-04 10:57] VITALS: BP 120/90
== END 2019-10-04 10:57 | disposition home or self-care (01) ==
LOC: MED 06:36
DX: S93.402A Sprain of unspecified ligament of left ankle, initial encounter (principal); J44.9 Chronic obstructive pulmonary disease, unspecified; Z85.038 Personal history of other malignant neoplasm of large intestine; Z79.899 Other long term (current) drug therapy; X58.XXXA Exposure to other specified factors, initial encounter; Y93.89 Activity, other specified; Y92.89 Other specified places as the place of occurrence of the external cause; Y99.8 Other external cause status
CPT/HCPCS: 73610; 96372; 99283; J1885; Q0092

== ENCOUNTER 2019-10-19 21:25 | Emergency (ER) | payer MEDICAID ==
[~2019-10-19] VITALS: Ht 154.9 cm; Wt 54.4 kg
[2019-10-19 21:45] VITALS: BP 111/75
--- NOTE | 2019-10-19 21:48 | NUR ---
TO LOBBY A/W BED AMBULATORY
--- NOTE | 2019-10-19 22:44 | NUR ---
PT AMBULATED TO BED 2
--- NOTE | 2019-10-19 22:50 | NUR ---
54 YEAR OLD FEMALE COMPLAINS OF 10/10 STOMACH PAIN X 4 DAYS. PATIENT DENIES NAUSEA AND VOMITTING, BUT STATES SHE HAS DIARRHEA. PATIENT BOWEL SOUNDS ACTIVE X4, NONTENDER, NONDISTENDED. PATIENT AOX4, BREATHING EVEN AND UNLABORED, SKIN WARM AND DRY. BED IN LOWEST POSITION, LOCKED, BED RAIL UPX1. ALLERGIES - NKA
[2019-10-19] MEDS ORDERED: metroNIDAZOLE 500 MG/NS PREMIX 100 ML IV ONE (23:55)
[2019-10-19] MEDS ORDERED: LEVOFLOXACIN 500 MG/D5W PREMIX 100 ML IV ONE (23:55)
--- NOTE | 2019-10-20 | NUR ---
PATIENT AOX4, BREATHING EVEN AND UNLABORED
[2019-10-20] MEDS ORDERED: LEVOFLOXACIN 500 MG/D5W PREMIX 100 ML IV ONE (00:04)
--- NOTE | 2019-10-20 00:25 | NUR ---
ERMD REMINDED OF PT PAIN LEVEL
[2019-10-20] MEDS ORDERED: MORPHINE SULFATE 4 MG/ML SYR IVP ONE (00:35)
--- NOTE | 2019-10-20 00:35 | NUR ---
PATIENT TAKEN TO CT
[2019-10-20 00:37] LABS: EOSINOPHILS # (AUTO) 0.1 K/uL (0-0.4); LYMPHOCYTES # (AUTO) 1.1 K/uL (2.5-16.5); MEAN CORPUSCULAR VOLUME 78.3 fL (80-94); PLATELET COUNT (AUTO) 299 K/uL (140-450); WHITE BLOOD COUNT (AUTO) 3.2 K/uL (4.8-10.8)
[2019-10-20 00:40] LABS: BASOPHILS % (AUTO) 0.2 % (0.0-2.0); EOSINOPHILS % (AUTO) 4.1 % (0.0-4.0); HEMATOCRIT 29.7 % (36-48); LYMPHOCYTES % (AUTO) 33.4 % (20.5-51.1); MEAN CORPUSCULAR HEMOGLOBIN 24 pg (27-31); MEAN CORPUSCULAR HGB CONC 31 g/dL (33-37); MONOCYTES # (AUTO) 0.4 K/uL (0.8-1.0); MONOCYTES % (AUTO) 13.5 % (1.7-9.3); NEUTROPHILS # (AUTO) 1.6 K/uL (1.8-7.7); NEUTROPHILS % (AUTO) 48.8 % (42.2-75.2); RED BLOOD CELL COUNT(AUTO) 3.79 MIL/uL (4.20-5.40); RED CELL DISTRIBUTION WIDTH 16.7 % (11.6-13.7)
[2019-10-20 00:54] LABS: ALBUMIN 3.5 g/dL (3.4-5.0); ANION GAP 12.8 (8-16); CARBON DIOXIDE 27.2 mmol/L (21-32); CREATININE 0.7 mg/dL (0.6-1.3); TOTAL BILIRUBIN 0.2 mg/dL (0.0-1.0)
--- NOTE | 2019-10-20 01:00 | NUR ---
PATIENT AOX4, BREATHING EVEN AND UNLABORED
[2019-10-20] MEDS ORDERED: metroNIDAZOLE 500 MG/NS PREMIX 100 ML IV ONE (02:01)
--- NOTE | 2019-10-20 02:05 | NUR ---
PATIENT AOX4, BREATHING EVEN AND UNLABORED. PT STATES SHE IS STILL IN PAIN 9 PAIN, DR DAWKINS MADE AWARE
--- NOTE | 2019-10-20 02:25 | NUR ---
REPORT GIVEN TO LÁZARO MCKEON, ON LUNCH
--- NOTE | 2019-10-20 02:55 | NUR ---
BACK FROM LUNCH, PATIENT BREATHING EVEN AND UNLABORED, ALERT AND AWAKE WITH AT BEDSIDE
[2019-10-20 04:00] VITALS: BP 97/57
--- NOTE | 2019-10-20 04:00 | NUR ---
Patient discharged with v/s stable. Written and verbal after care instructions about viral gastroenteritis given and explained. Patient alert, oriented and verbalized understanding of instructions. Ambulatory with steady gait. All questions addressed prior to discharge. ID band removed. Patient advised to follow up with PMD. Rx of ciprofloxacin given. Patient educated on indication of medication including possible reaction and side effects. Opportunity to ask questions provided and answered.
== END 2019-10-20 04:00 | disposition home or self-care (01) ==
LOC: MED 21:25
DX: K52.9 Noninfective gastroenteritis and colitis, unspecified (principal); J44.9 Chronic obstructive pulmonary disease, unspecified; Z85.038 Personal history of other malignant neoplasm of large intestine; Z79.899 Other long term (current) drug therapy; Z98.84 Bariatric surgery status
CPT/HCPCS: 74176; 80053; 81002; 81025; 82150; 83690; 85025; 87040; 96365; 96366; 96367; 96375; 99285; J1956; J2270; J3490

== ENCOUNTER 2019-10-27 07:27 | Emergency (ER) | payer MEDICAID ==
[~2019-10-27] VITALS: Ht 154.9 cm; Wt 54.4 kg
[2019-10-27 07:30] VITALS: BP 140/82
--- NOTE | 2019-10-27 07:43 | NUR ---
RECEIVED A 54/F FROM TRIAGE FOR COLD SYMPTOMS. REPORTS COUGH, CONGESTION X 2 DAYS. LUNG SOUNDS CLEAR BILATERALLY. NO DISTRESS NOTED. IN BED FOR MSE.
--- NOTE | 2019-10-27 07:59 | NUR ---
PATIENT TAKEN FOR XRAY VIA WHEELCHAIR.
--- NOTE | 2019-10-27 08:11 | NUR ---
RETURN FROM XRAY.
[2019-10-27 08:43] VITALS: BP 140/82
--- NOTE | 2019-10-27 08:43 | NUR ---
Patient discharged with v/s stable. Written and verbal after care instructions given and explained. Patient alert, oriented and verbalized understanding of instructions. Ambulatory with steady gait. All questions addressed prior to discharge. ID band removed. Patient advised to follow up with PMD. Rx of TESSALON PERLES, TAMIFLU, PROMETHAZINE DM given. Patient educated on indication of medication including possible reaction and side effects. Opportunity to ask questions provided and answered.
== END 2019-10-27 08:43 | disposition home or self-care (01) ==
LOC: MED 07:27
DX: J11.1 Influenza due to unidentified influenza virus with other respiratory manifestations (principal); B34.9 Viral infection, unspecified; J44.9 Chronic obstructive pulmonary disease, unspecified; Z79.899 Other long term (current) drug therapy; Z85.9 Personal history of malignant neoplasm, unspecified
CPT/HCPCS: 71046; 99283

== ENCOUNTER 2020-01-09 17:41 | Emergency (ER) | payer MEDICAID ==
[~2020-01-09] VITALS: Ht 154.9 cm; Wt 59.0 kg
[2020-01-09 17:51] VITALS: BP 129/68
--- NOTE | 2020-01-09 17:54 | NUR ---
PT AMBULATED TO BED 2
--- NOTE | 2020-01-09 18:44 | NUR ---
Female Instructional Material Director, NICOLE MCKEON, accompanied female patient for BREAST EXAM
--- NOTE | 2020-01-09 18:47 | NUR ---
C/O LEFT RIB PAIN 05/14 UNDER BREAST X1 WEEK. DENIES ANY PROVOKING ACCIDENTS/INJURY. NO MASSES FELT UPON PALPATION. PT DENIES ANY N/V/D/FEVER. PT STATES APPROX 3 WEEKS AGO SHE HAD A COUGH BUT IS NOT CURENTLY COUGHING. LUNGS CLEAR BILTERALLY. PMH: COLON CX, GASTRIC BYPASS, ANXIETY NKDA
[2020-01-09 19:01] VITALS: BP 115/69
--- NOTE | 2020-01-09 19:01 | NUR ---
Patient discharged with v/s stable. Written and verbal after care instructions given and explained. Patient verbalized understanding. Ambulatory with steady gait. All questions addressed prior to discharge. Advised to follow up with PMD.
== END 2020-01-09 19:01 | disposition home or self-care (01) ==
LOC: MED 17:41
DX: R07.89 Other chest pain (principal); R05 Cough; J44.9 Chronic obstructive pulmonary disease, unspecified; Z85.038 Personal history of other malignant neoplasm of large intestine; Z79.899 Other long term (current) drug therapy
CPT/HCPCS: 99281

== ENCOUNTER 2020-01-11 15:19 | Emergency (ER) | payer MEDICAID ==
[~2020-01-11] VITALS: Ht 157.5 cm; Wt 64.4 kg
--- NOTE | 2020-01-11 15:23 | NUR ---
AMBULATED TO BED 5
[2020-01-11 15:27] VITALS: BP 134/78
--- NOTE | 2020-01-11 15:30 | NUR ---
EKG PERFORMED AT BEDSIDE
--- NOTE | 2020-01-11 15:35 | NUR ---
PT C/O NON-RADIATING INTERMITTENT LEFT SIDED CP AND EXACERBATED FOR THE PAST 12 HOURS WITH SHARP CHARACTERISTIC. PT ALSO SOB AT THIS TIME. DENIES FEVER, COUGH. PATIENT STATES PAIN OF 10/10 AT THIS TIME; VSS; PATIENT POSITIONED FOR COMFORT; HOB ELEVATED; BEDRAILS UP X2; BED DOWN. ER MD MADE AWARE OF PT STATUS. PT IS ON THE MONITOR.
--- NOTE | 2020-01-11 15:55 | NUR ---
PT STATES SHE HAS SOB, AND DEEP BREATHING PATTERN NOTICED. 2L OXYGEN GIVEN VIA NASAL CANNULA.
--- NOTE | 2020-01-11 16:00 | NUR ---
XR AT BEDSIDE.
--- NOTE | 2020-01-11 16:05 | NUR ---
Daniel michael in [facility] - 01/11/20 at 1607 by RADHAMES BARRY IS AT BEDSIDE.
[2020-01-11 16:24] LABS: BASOPHILS % (AUTO) 0.8 % (0.0-2.0); EOSINOPHILS # (AUTO) 0.2 K/uL (0-0.4); EOSINOPHILS % (AUTO) 5.5 % (0.0-4.0); HEMATOCRIT 29.8 % (36-48); HEMOGLOBIN 9.2 g/dL (12.0-16.0); LYMPHOCYTES # (AUTO) 1.5 K/uL (2.5-16.5); LYMPHOCYTES % (AUTO) 39.8 % (20.5-51.1); MEAN CORPUSCULAR HEMOGLOBIN 24 pg (27-31); MEAN CORPUSCULAR HGB CONC 31 g/dL (33-37); MEAN CORPUSCULAR VOLUME 77.8 fL (80-94); MONOCYTES # (AUTO) 0.4 K/uL (0.8-1.0); MONOCYTES % (AUTO) 11.1 % (1.7-9.3); NEUTROPHILS # (AUTO) 1.6 K/uL (1.8-7.7); NEUTROPHILS % (AUTO) 42.8 % (42.2-75.2); PLATELET COUNT (AUTO) 279 K/uL (140-450); RED BLOOD CELL COUNT(AUTO) 3.84 MIL/uL (4.20-5.40); RED CELL DISTRIBUTION WIDTH 16.1 % (11.6-13.7); WHITE BLOOD COUNT (AUTO) 3.7 K/uL (4.8-10.8)
[2020-01-11 16:28] LABS: ALBUMIN 3.3 g/dL (3.4-5.0); ANION GAP 10.6 (8-16); CARBON DIOXIDE 27.8 mmol/L (21-32); CREATININE 0.8 mg/dL (0.6-1.3); TOTAL BILIRUBIN 0.3 mg/dL (0.0-1.0)
[2020-01-11 16:39] LABS: POTASSIUM 4.1 mmol/L (3.5-5.1)
[2020-01-11] MEDS ORDERED: HYDROcodone/APAP 5/325 MG 1 TAB TAB PO ONE (17:15)
[2020-01-11 17:34] VITALS: BP 113/72
--- NOTE | 2020-01-11 17:34 | NUR ---
Patient discharged with v/s stable. Written and verbal after care instructions given and explained. Patient alert, oriented and verbalized understanding of instructions. Ambulatory with steady gait. All questions addressed prior to discharge. ID band removed. Patient advised to follow up with PMD. Rx of [place] given. Patient educated on indication of medication including possible reaction and side effects. Opportunity to ask questions provided and answered.
== END 2020-01-11 17:34 | disposition home or self-care (01) ==
LOC: MED 15:19
DX: R07.9 Chest pain, unspecified (principal); J45.909 Unspecified asthma, uncomplicated; J44.9 Chronic obstructive pulmonary disease, unspecified; Z79.899 Other long term (current) drug therapy; Z85.038 Personal history of other malignant neoplasm of large intestine
CPT/HCPCS: 36415; 71045; 80053; 83880; 84484; 85025; 85379; 93005; 99285; Q0092

== ENCOUNTER 2020-01-31 07:24 | Emergency (ER) | payer MEDICAID ==
[~2020-01-31] VITALS: Ht 154.9 cm; Wt 59.0 kg
[2020-01-31 07:28] VITALS: BP 117/79
--- NOTE | 2020-01-31 07:31 | NUR ---
Patient ambulated to bed 7. RN evaluating patient at bedside.
--- NOTE | 2020-01-31 07:38 | NUR ---
Dr. Meyer is evaluating the patient at bedside.
--- NOTE | 2020-01-31 07:38 | NUR ---
PT C/O CHEST PAIN AND ANXIETY. PT PLACED ON PAPER WRAPPING MACHINE OPERATOR. PT STATES SHE HAS BEEN SHAKING FOR THE PAST 2 DAYS. PT IS COMFORTABLE AT BEDSIDE. VSS. R/R ARE EVEN AND UNLABORED. PT IS A&O X4. PMHX: ASTHMA, ANXIETY NKA/NKDA.
[2020-01-31 07:47] VITALS: BP 117/79
--- NOTE | 2020-01-31 07:48 | NUR ---
Patient discharged with v/s stable. Written and verbal after care instructions given and explained. Patient alert, oriented and verbalized understanding of instructions. Ambulatory with steady gait. All questions addressed prior to discharge. ID band removed. Patient advised to follow up with PMD. Rx of ATARAX 25MG TABLET given. Patient educated on indication of medication including possible reaction and side effects. Opportunity to ask questions provided and answered.
== END 2020-01-31 07:48 | disposition home or self-care (01) ==
LOC: MED 07:24
DX: F41.9 Anxiety disorder, unspecified (principal); J44.9 Chronic obstructive pulmonary disease, unspecified; Z98.84 Bariatric surgery status; Z86.010 Personal history of colon polyps
CPT/HCPCS: 29505; 99283

== ENCOUNTER 2020-02-26 10:30 | Emergency (ER) | payer MEDICAID ==
[~2020-02-26] VITALS: Ht 154.9 cm; Wt 61.2 kg
[2020-02-26 10:35] VITALS: BP 114/73
--- NOTE | 2020-02-26 10:38 | NUR ---
PT AMBULATED TO BED 06
--- NOTE | 2020-02-26 10:43 | NUR ---
54/F C/O DIZZINESS X 3 DAYS. PRESYNCOPAL EPISODE AROUND 1000 TODAY. DENIES CHEST PAIN, FEVER, COUGH, ANXIETY. STATES FEELING SOB. FRONTAL RÍOS, KAREY, 03/13, FOR 3 DAYS. FULL CLEAR SPEECH AOX4. APPEARS NAD, SCROLLING THROUGH CELLPHONE MEDHX: ANEMIA, COLON CANCER
--- NOTE | 2020-02-26 10:48 | NUR ---
PT AMB TO BATHROOM STEADY GAIT TO PROVIDE URINE SAMPLE
--- NOTE | 2020-02-26 10:57 | NUR ---
DR MORE EVALUATING PT AT BEDSIDE
--- NOTE | 2020-02-26 11:06 | NUR ---
FORMULATION TECHNICIAN AT BEDSIDE FOR BLOOD DRAW. URINE SAMPLE GIVEN TO FORMULATION TECHNICIAN ALSO AT THIS TIME.
[2020-02-26 11:19] LABS: EOSINOPHILS # (AUTO) 0.1 K/uL (0-0.4); MEAN CORPUSCULAR HEMOGLOBIN 24 pg (27-31); MEAN CORPUSCULAR HGB CONC 31 g/dL (33-37); MEAN CORPUSCULAR VOLUME 76.7 fL (80-94); MONOCYTES # (AUTO) 0.3 K/uL (0.8-1.0); RED BLOOD CELL COUNT(AUTO) 3.76 MIL/uL (4.20-5.40)
[2020-02-26 11:21] LABS: BILIRUBIN,URINE NEGATIVE (NEGATIVE); BLOOD, URINE NEGATIVE (NEGATIVE); COLOR,URINE DARK YELLOW (YELLOW); LEUKOCYTE ESTERASE ,URINE TRACE (NEGATIVE); NITRITE, URINE NEGATIVE (NEGATIVE); UGLUCOSE NEGATIVE (NEGATIVE)
[2020-02-26 11:22] LABS: BASOPHILS # (AUTO) 0.1 K/uL (0.00-0.22); BASOPHILS % (AUTO) 1.7 % (0.0-2.0); EOSINOPHILS % (AUTO) 2.3 % (0.0-4.0); HEMATOCRIT 28.9 % (36-48); LYMPHOCYTES % (AUTO) 27.4 % (20.5-51.1); MONOCYTES % (AUTO) 9.5 % (1.7-9.3); NEUTROPHILS # (AUTO) 2.1 K/uL (1.8-7.7); NEUTROPHILS % (AUTO) 59.1 % (42.2-75.2); PLATELET COUNT (AUTO) 278 K/uL (140-450); WHITE BLOOD COUNT (AUTO) 3.5 K/uL (4.8-10.8)
[2020-02-26 11:39] LABS: ALBUMIN 3.4 g/dL (3.4-5.0); ANION GAP 13.7 (8-16); CARBON DIOXIDE 24.8 mmol/L (21-32); CREATININE 1.2 mg/dL (0.6-1.3); POTASSIUM 3.5 mmol/L (3.5-5.1); TOTAL BILIRUBIN 0.2 mg/dL (0.0-1.0)
[2020-02-26 11:47] LABS: APPEARANCE,URINE SLIGHTLY HAZY (CLEAR); RBC,URINE 0-5 /HPF (0-5); WBC,URINE 0-5 /HPF (0-5)
[2020-02-26 12:20] VITALS: BP 120/80
--- NOTE | 2020-02-26 12:21 | NUR ---
Patient discharged with v/s stable. Written and verbal after care instructions given and explained. Patient alert, oriented and verbalized understanding of instructions. Ambulatory with steady gait. All questions addressed prior to discharge. ID band removed. Patient advised to follow up with PMD. Rx of Albuterol Sulfate 0.083% solution and Albuterol 90mcg/actuation given. Patient educated on indication of medication including possible reaction and side effects. Opportunity to ask questions provided and answered.
== END 2020-02-26 12:21 | disposition home or self-care (01) ==
LOC: MED 10:30
DX: F41.9 Anxiety disorder, unspecified (principal); D64.9 Anemia, unspecified; J44.9 Chronic obstructive pulmonary disease, unspecified; J45.909 Unspecified asthma, uncomplicated; Z85.9 Personal history of malignant neoplasm, unspecified; Z79.899 Other long term (current) drug therapy
CPT/HCPCS: 36415; 80053; 81001; 85025; 99283

== ENCOUNTER 2020-03-05 08:08 | Emergency (ER) | payer MEDICAID ==
[~2020-03-05] VITALS: Ht 154.9 cm; Wt 59.0 kg
[2020-03-05 08:15] VITALS: BP 124/79
--- NOTE | 2020-03-05 08:23 | NUR ---
PT AMB TO BED 12.
--- NOTE | 2020-03-05 08:27 | NUR ---
54 Y/O FEMALE FROM HOME C/O RT MIDDLE FINGER PAIN X 2 WKS AND MID BACK PAIN X 1 WK. PT NOTICABLE REDDEND AREA TO RT MIDDLE FINGER KNUCKLE WITH SLIGHT SWELLING. PT ABLE TO FLEX AND EXTEND FINGER. DENIES TRAUMA/INJURY TO FINGER AND BACK. DENIES URINARY SYMPTOMS. 9/10 ACHING PAIN. VSS MEDHX: COLON CANCER, ANEMIA, ASTHMA
[2020-03-05] MEDS ORDERED: GABAPENTIN 300 MG CAP PO ONE (09:15)
[2020-03-05] MEDS ORDERED: HYDROcodone/APAP 5/325 MG 1 TAB TAB PO ONE (09:15)
--- NOTE | 2020-03-05 09:29 | NUR ---
PT TO XRAY VIA WHEELCHAIR
[2020-03-05] MEDS ORDERED: GABAPENTIN 100 MG CAP PO SCH (09:30)
--- NOTE | 2020-03-05 09:57 | NUR ---
PT RESTING IN BED WITH EYES CLOSED, VISIBLE RISE AND FALL OF THE CHEST. VSS
[2020-03-05 10:25] VITALS: BP 124/79
--- NOTE | 2020-03-05 10:26 | NUR ---
Patient discharged with v/s stable. Written and verbal after care instructions given and explained. Patient alert, oriented and verbalized understanding of instructions. Ambulatory with steady gait. All questions addressed prior to discharge. ID band removed. Patient advised to follow up with PMD. Rx of IBUPROFEN 600MG, CYCLOBENZAPRINE HYDROCHLORIDE 10MG, AND TYLENOL EXTRA STRENGTH 500MG given. Patient educated on indication of medication including possible reaction and side effects. Opportunity to ask questions provided and answered.
== END 2020-03-05 10:26 | disposition home or self-care (01) ==
LOC: MED 08:08
DX: M54.5 Low back pain (principal); D64.9 Anemia, unspecified; J45.909 Unspecified asthma, uncomplicated; J44.9 Chronic obstructive pulmonary disease, unspecified; Z90.49 Acquired absence of other specified parts of digestive tract
CPT/HCPCS: 20553; 72100; 81002; 81025; 99283; 99284

== ENCOUNTER 2020-03-24 18:23 | Emergency (ER) | payer MEDICAID ==
[~2020-03-24] VITALS: Ht 154.9 cm; Wt 54.4 kg
[2020-03-24 18:42] VITALS: BP 151/94
--- NOTE | 2020-03-24 18:48 | NUR ---
WAIT AT LOBBY.
--- NOTE | 2020-03-24 18:56 | NUR ---
PT AMBULATED TO BED 04
--- NOTE | 2020-03-24 19:20 | NUR ---
Dr. Meyer examining patient.
[2020-03-24] MEDS ORDERED: KETOROLAC 60 MG/2 ML VIAL IM ONE (19:25)
--- NOTE | 2020-03-24 19:35 | NUR ---
PT TAKEN TO XRAY
--- NOTE | 2020-03-24 20:06 | NUR ---
55 YO FEMALE C/O BACK OF HEAD,LEFT WRIST, LEFT SHOULDER, BACK PAIN S/P FALL X 1 HOUR AGO. DENIES LOC. MED HX: XCOLECTOMY,ASTHMA, GASTRIC BY PASS, ANEMIA
[2020-03-24 20:57] VITALS: BP 130/84
--- NOTE | 2020-03-24 20:58 | NUR ---
Patient discharged with v/s stable. Written and verbal after care instructions given and explained. Patient alert, oriented and verbalized understanding of instructions. Ambulatory with steady gait. All questions addressed prior to discharge. ID band removed. Patient advised to follow up with PMD. Rx of NORCO AND MOTRIN given. Patient educated on indication of medication including possible reaction and side effects. Opportunity to ask questions provided and answered.
== END 2020-03-24 20:58 | disposition home or self-care (01) ==
LOC: MED 18:23
DX: M79.632 Pain in left forearm (principal); M54.2 Cervicalgia; M54.9 Dorsalgia, unspecified; J44.9 Chronic obstructive pulmonary disease, unspecified; Z85.038 Personal history of other malignant neoplasm of large intestine; Z98.890 Other specified postprocedural states; Z79.899 Other long term (current) drug therapy
CPT/HCPCS: 72040; 72100; 73080; 73110; 96372; 99284; J1885

== ENCOUNTER 2020-04-11 13:34 | Emergency (ER) | payer MEDICAID ==
[~2020-04-11] VITALS: Ht 154.9 cm; Wt 59.9 kg
[2020-04-11 13:51] VITALS: BP 112/81
--- NOTE | 2020-04-11 13:58 | NUR ---
PATIENT AMBULATED TO BED2.
--- NOTE | 2020-04-11 14:33 | NUR ---
55 Y/O FEMALE STATES SHE HAS BEEN FEELING DEPRESSED/ANXIETY FOR ONE WEEK. IS NOT ON ANY MEDICATION AT THIS TIME. DENIES ANY STRESSFUL EVENTS. DENIES SI/HI. STATES "IM JUST NOT HAPPY, NOT ACTIVE, I DONT FEEL GOOD". PMH: COLON CX, GASTRIC BYPASS
[2020-04-11 15:12] VITALS: BP 112/81
== END 2020-04-11 15:15 | disposition home or self-care (01) ==
LOC: MED 13:34
DX: F41.9 Anxiety disorder, unspecified (principal); J44.9 Chronic obstructive pulmonary disease, unspecified; Z98.84 Bariatric surgery status; Z85.038 Personal history of other malignant neoplasm of large intestine; Z98.890 Other specified postprocedural states; Z79.899 Other long term (current) drug therapy
CPT/HCPCS: 99283

== ENCOUNTER 2020-06-18 10:47 | Emergency (ER) | payer MEDICAID ==
[~2020-06-18] VITALS: Ht 154.9 cm; Wt 59.0 kg
[2020-06-18 10:49] VITALS: BP 125/66
--- NOTE | 2020-06-18 10:58 | NUR ---
Patient transferred to bed 3 via wheelchair by tech. RN evaluating patient at bedside.
--- NOTE | 2020-06-18 11:11 | NUR ---
55 Y/O FEMALE PRESENTS TO ER WITH C/O ANXIETY X 1 WEEK. 7/10 MID BACK PAIN. PT STATES SHE CAME INTO ER FOR MEDICATION REFILL FOR ANXIETY MEDS. PT IS A&O X4, VSS, R/R EQUAL, AND UNLABORED. DENIES N/V/D, COUGH, SOB, CHILLS, FEVER, SI,HI. SIDE RAIL X1, BED IN LOW POSITION, WILL CONTINUE TO MONITOR. NKDA PMH: ANXIETY, COLON CANCER, , GASTRIC BY-PASS
[2020-06-18 11:34] VITALS: BP 125/66
== END 2020-06-18 11:35 | disposition home or self-care (01) ==
LOC: MED 10:47
DX: F41.9 Anxiety disorder, unspecified (principal); J44.9 Chronic obstructive pulmonary disease, unspecified; I51.9 Heart disease, unspecified; Z79.899 Other long term (current) drug therapy; Z85.038 Personal history of other malignant neoplasm of large intestine
CPT/HCPCS: 99283

== ENCOUNTER 2020-07-18 07:20 | Emergency (ER) | payer MEDICAID ==
[~2020-07-18] VITALS: Ht 154.9 cm; Wt 65.9 kg
[2020-07-18 07:24] VITALS: BP 123/76
[2020-07-18] MEDS ORDERED: KETOROLAC 60 MG/2 ML VIAL IM ONE (07:50)
[2020-07-18 08:01] VITALS: BP 123/76
== END 2020-07-18 08:01 | disposition home or self-care (01) ==
LOC: MED 07:20
DX: H00.011 Hordeolum externum right upper eyelid (principal); J45.909 Unspecified asthma, uncomplicated; F41.9 Anxiety disorder, unspecified; Z79.899 Other long term (current) drug therapy; Z98.890 Other specified postprocedural states; Z98.84 Bariatric surgery status
CPT/HCPCS: 96372; 99283; J1885

== ENCOUNTER 2020-08-22 09:02 | Emergency (ER) | payer MEDICAID ==
--- NOTE | 2020-08-22 09:45 | NUR ---
PATIENT LEFT WITHOUT BEING SEEN BY DR. LUGO. NO FURTHER CARE PROVIDED FOR PATIENT. PT STATES SHE DOES NOT WANT TO WAIT.
== END 2020-08-22 09:45 | disposition left against medical advice (07) ==
LOC: MED 09:02
DX: Z53.21 Procedure and treatment not carried out due to patient leaving prior to being seen by health care provider (principal)

== ENCOUNTER 2021-03-17 17:00 | Emergency (ER) | payer MEDICAID ==
[~2021-03-17] VITALS: Ht 154.9 cm; Wt 59.0 kg
[2021-03-17 17:04] VITALS: BP 127/83
--- NOTE | 2021-03-17 17:07 | NUR ---
to lobby a/w bed ambulatory
[2021-03-17] MEDS ORDERED: KETOROLAC 60 MG/2 ML VIAL IM ONE (18:20)
[2021-03-17] MEDS ORDERED: ACET-8386 PO ×2 (18:33→18:54)
[2021-03-17 18:55] VITALS: BP 127/83
--- NOTE | 2021-03-17 18:55 | NUR ---
Patient discharged with v/s stable. Written and verbal after care instructions given and explained. Patient alert, oriented and verbalized understanding of instructions. Ambulatory with steady gait. All questions addressed prior to discharge. ID band removed. Patient advised to follow up with PMD. Rx of [place] given. Patient educated on indication of medication including possible reaction and side effects. Opportunity to ask questions provided and answered.
== END 2021-03-17 18:55 | disposition home or self-care (01) ==
LOC: MED 17:00
DX: M25.571 Pain in right ankle and joints of right foot (principal); X58.XXXA Exposure to other specified factors, initial encounter; Y93.89 Activity, other specified; Y92.89 Other specified places as the place of occurrence of the external cause; Y99.8 Other external cause status
CPT/HCPCS: 96372; 99283; J1885

== ENCOUNTER 2021-12-08 02:40 | Inpatient (IN) | payer MEDICAID ==
[~2021-12-08] VITALS: Ht 154.9 cm; Wt 64.9 kg
[~2021-12-08 02:40] MED LIST changes: +ACET-8386 PO
[2021-12-08 02:44] VITALS: BP 129/74
--- NOTE | 2021-12-08 02:44 | NUR ---
Patient ambualted to BED 11 with steady gait, at bedside.
--- NOTE | 2021-12-08 02:50 | NUR ---
Patient bib self for c/o LLQ and RLQ abdominal pain x 2 days. Patient states has not had BM x 2 days. Patient abdomen is soft, round, and tender to touch. BS present x 4 quadrants. Patient admits to x 1 episode of N/V yesterday afternoon. Patient states takes Percocet for pain management of R knee replacement. Patient denies hx of appendectomy or cholecystectomy. PMH: Asthma, Seizures, Anxiety, Gastric Bypass x 17 years ago.
[2021-12-08] MEDS ORDERED: NACL 0.9% 500 ML IV ONE ×2 (03:10→04:15)
[2021-12-08] MEDS ORDERED: MORPHINE SULFATE 4 MG/ML SYR IVP ONE ×3 (03:10→06:20)
[2021-12-08] MEDS ORDERED: ONDANSETRON 4 MG/2 ML VIAL IVP ONE (03:10)
[2021-12-08 03:11] LABS: BASOPHILS % (AUTO) 0.5 % (0.0-2.0); EOSINOPHILS % (AUTO) 0.1 % (0.0-4.0); HEMATOCRIT 39.3 % (36-48); HEMOGLOBIN 13.2 g/dL (12.0-16.0); LYMPHOCYTES # (AUTO) 1.6 K/uL (2.5-16.5); LYMPHOCYTES % (AUTO) 15.3 % (20.5-51.1); MEAN CORPUSCULAR HEMOGLOBIN 32 pg (27-31); MEAN CORPUSCULAR HGB CONC 34 g/dL (33-37); MEAN CORPUSCULAR VOLUME 95.2 fL (80-94); MONOCYTES # (AUTO) 0.7 K/uL (0.8-1.0); MONOCYTES % (AUTO) 6.6 % (1.7-9.3); NEUTROPHILS # (AUTO) 8.1 K/uL (1.8-7.7); NEUTROPHILS % (AUTO) 77.5 % (42.2-75.2); PLATELET COUNT (AUTO) 288 K/uL (140-450); RED BLOOD CELL COUNT(AUTO) 4.13 MIL/uL (4.20-5.40); RED CELL DISTRIBUTION WIDTH 12.6 % (11.6-13.7); WHITE BLOOD COUNT (AUTO) 10.4 K/uL (4.8-10.8)
[2021-12-08 03:26] LABS: ALBUMIN 3.9 g/dL (3.4-5.0); ANION GAP 19.9 (8-16); CARBON DIOXIDE 19.3 mmol/L (21-32); CREATININE 1.1 mg/dL (0.6-1.3); POTASSIUM 3.2 mmol/L (3.5-5.1); TOTAL BILIRUBIN 0.7 mg/dL (0.0-1.0)
[2021-12-08] MEDS ORDERED: diphenhydrAMINE 50 MG CAP PO ONE (03:30)
--- NOTE | 2021-12-08 03:30 | NUR ---
MAULIK AT [facility] TO EXPLAIN NEED FOR CT WITH CONTRAST, AT [facility] AND SIGNED CONSENT FOR PAITIENT.
--- NOTE | 2021-12-08 03:47 | NUR ---
Patient taken to CT via gurney. PO benadryl given prior to CT scan.
--- NOTE | 2021-12-08 03:57 | NUR ---
Emergency Contact: Valentino erickson [phone]
[2021-12-08] MEDS ORDERED: metroNIDAZOLE 500 MG/NS PREMIX 100 ML IV ONE (05:35)
[2021-12-08] MEDS ORDERED: cefTRIAXone 1,000 MG VIAL ONE (06:10)
[2021-12-08] MEDS ORDERED: MORPHINE SULFATE 4 MG/ML SYR IVP SCH (06:20)
--- NOTE | 2021-12-08 06:21 | NUR ---
Patient continues with 8/10 abdominal pain, denies nausea. Patient able to have ice chips per [employer]MR[employer]. patient rose mary swab collected and given to [employer].
[2021-12-08] MEDS ORDERED: ACET-5629 PO (06:32)
[2021-12-08 07:16] LABS: APPEARANCE,URINE CLEAR (CLEAR); BILIRUBIN,URINE NEGATIVE (NEGATIVE); BLOOD, URINE TRACE-I (NEGATIVE); COLOR,URINE YELLOW (YELLOW); LEUKOCYTE ESTERASE ,URINE NEGATIVE (NEGATIVE); NITRITE, URINE POSITIVE (NEGATIVE); UGLUCOSE NEGATIVE (NEGATIVE)
--- NOTE | 2021-12-08 07:16 | NUR ---
Report given to Johnny MCKEON, transfer of care.
--- NOTE | 2021-12-08 07:31 | NUR ---
RECIEVED CRITICAL REPORT LACTIC ACID 2.5 INFORMED ER DOCTOR
[2021-12-08] MEDS ORDERED: ONDANSETRON 4 MG/2 ML VIAL IVP PRN (07:35)
[2021-12-08] MEDS ORDERED: MORPHINE SULFATE 2 MG/ML SYR IVP PRN (07:50)
[2021-12-08 08:11] LABS: RBC,URINE 0-5 /HPF (0-5); WBC,URINE 0-5 /HPF (0-5)
[2021-12-08 08:13] LABS: CALCIUM OXALATE CRYSTALS,UR None Seen /HPF (None Seen); COARSE GRANULAR CASTS,URINE None Seen /LPF (None Seen); FINE GRANULAR CASTS,URINE None Seen /LPF (None Seen); HYALINE CASTS, URINE None Seen /LPF (None Seen); OTHER CASTS, URINE None Seen /LPF (None Seen); OTHER CRYSTALS,URINE None Seen /HPF (None Seen); RED BLOOD CELL CASTS,URINE None Seen /LPF (None Seen); TRICHOMONAS,URINE None Seen /HPF (None Seen); TRIPLE PHOSPHATE CRYSTAL,UR None Seen /HPF (None Seen); URIC ACID CRYSTALS,URINE None Seen /HPF (None Seen); URINE AMORPHOUS URATE None Seen /HPF (None Seen); WAXY CASTS,URINE None Seen /LPF (None Seen); YEAST,URINE None Seen /HPF (None Seen)
--- NOTE | 2021-12-08 08:20 | NUR ---
PT ARRIVED TO UNIT VIA GURNEY. PT IS AWAKE AND ALERT. A&OX4. ON RA WITH BREATHING UNLABORED. AMBULATORY INDEPENDENTLY. ON TELE MONITOR. CONTINENT OF THE BOWEL AND BLADDER. SKIN IS WARM, DRY, AND INTACT. IV IS IN THE LEFT AC 20 GAUGE SALINE LOCKED. PT IS STABLE. PLAN OF CARE DISCUSSED.
[2021-12-08 08:30] VITALS: BP 124/79
--- NOTE | 2021-12-08 08:34 | NUR ---
gave report to raghavendra at bedside
--- NOTE | 2021-12-08 08:57 | NUR ---
PT IS STATING SHE IS PAIN AT A SCALE OF 8/10 IN THE ABD. PT WAS GIVEN MORPHINE FOR PAIN. BOP WAS 124/79 PRIOR TO ADMINISTRATION OF MEDICATION. WILL MONITOR PAIN.
[2021-12-08] MEDS ORDERED: PANTOPRAZOLE 40 MG INJ VIAL IVP SCH (09:00)
--- NOTE | 2021-12-08 11:00 | NUR ---
PT IS ASLEEP. NO DISTRESS OR PAIN NOTED. BREATHING IS UNLABORED ON RA. WILL CONTINUE TO MONITOR.
--- NOTE | 2021-12-08 11:00 | NUR ---
CALLED PBX AND ASKED THEM TO COUNT MONEY AT BEDSIDE FROM PT AND BRING TO SAFE. PT STATES THE MONEY IS AROUND 500 DOLLARS.
--- NOTE | 2021-12-08 11:31 | NUR ---
INQUIRED WITH DR. THOMPSON FOR DIET ORDER AND CODE STATUS OF PT. HE STATED TO PLACE ORDER FOR FULL CODE STATUS AND DIET ORDER SOFT/BLAND DIET.
[2021-12-08] MEDS ORDERED: PIPERACILLIN/TAZOBACTAM 3.375 GM in DEXTROSE 5% 50 ML IV SCH (12:00)
[2021-12-08] MEDS ORDERED: SODIUM PHOS / POTASSIUM PHOS 1 PKT PDR PO PRN (12:45)
[2021-12-08] MEDS ORDERED: ACETAMINOPHEN 325 MG TAB PO PRN (12:45)
[2021-12-08] MEDS ORDERED: HYDROcodone/APAP 5/325 MG 1 TAB TAB PO PRN (12:45)
[2021-12-08] MEDS ORDERED: MAGNESIUM OXIDE 400 MG TAB PO PRN (12:45)
[2021-12-08] MEDS ORDERED: ONDANSETRON 4 MG/2 ML VIAL IM/IVP PRN (12:45)
[2021-12-08] MEDS ORDERED: POTASSIUM CHLORIDE 10 MEQ TABER PO PRN (12:45)
[2021-12-08] MEDS ORDERED: DOCUSATE SODIUM 100 MG GELCAP PO PRN (12:45)
[2021-12-08] MEDS: MORPHINE SULFATE 2 MG/ML SYR IVP PRN ×2 (13:14→17:22)
[2021-12-08] MEDS: metroNIDAZOLE 500 MG TAB PO SCH ×2 (13:14→17:21)
[2021-12-08] MEDS: NACL 0.9% 1,000 ML IV SCH (13:14)
--- NOTE | 2021-12-08 13:14 | NUR ---
PT STATES SHE HAS PAIN AT A SCALE OF 7/10 IN THE ABD. PT WAS GIVEN MORPHINE FOR PAIN ORDERED. WILL MONITOR.
[2021-12-08 13:46] LABS: MAGNESIUM 2.1 mg/dL (1.8-2.4); PHOSPHORUS 2.9 mg/dL (2.5-4.9)
[2021-12-08 16:00] VITALS: BP 104/68
--- NOTE | 2021-12-08 17:22 | NUR ---
PT STATES PAIN AT A SCALE OF 8/10 IN THE ABD. MORPHINE WAS GIVEN PRN FOR PAIN. BP WAS STABLE PRIOR TO ADMINISTRATION OF MEDICATION.
--- NOTE | 2021-12-08 19:26 | NUR ---
KDUR 20 MEQ GIVEN PO FOR POTASSIUM LEVEL OF 3.2.
--- NOTE | 2021-12-08 19:27 | NUR ---
ENDORSED PT TO METAL CEILING BUILDER NURSE FOR CONTINUITY OF CARE. PT IS STABLE. PLAN OF CARE DISCUSSED.
[2021-12-09] MEDS: MORPHINE SULFATE 2 MG/ML SYR IVP PRN ×2 (02:30→08:17)
[2021-12-09 06:50] LABS: BASOPHILS % (AUTO) 0.8 % (0.0-2.0); EOSINOPHILS # (AUTO) 0.1 K/uL (0-0.4); EOSINOPHILS % (AUTO) 2.3 % (0.0-4.0); HEMATOCRIT 31.9 % (36-48); HEMOGLOBIN 10.8 g/dL (12.0-16.0); LYMPHOCYTES # (AUTO) 1.2 K/uL (2.5-16.5); LYMPHOCYTES % (AUTO) 19.4 % (20.5-51.1); MEAN CORPUSCULAR HEMOGLOBIN 33 pg (27-31); MEAN CORPUSCULAR HGB CONC 34 g/dL (33-37); MEAN CORPUSCULAR VOLUME 97.5 fL (80-94); MONOCYTES # (AUTO) 0.5 K/uL (0.8-1.0); MONOCYTES % (AUTO) 8.1 % (1.7-9.3); NEUTROPHILS # (AUTO) 4.2 K/uL (1.8-7.7); NEUTROPHILS % (AUTO) 69.4 % (42.2-75.2); PLATELET COUNT (AUTO) 213 K/uL (140-450); RED BLOOD CELL COUNT(AUTO) 3.28 MIL/uL (4.20-5.40); RED CELL DISTRIBUTION WIDTH 13.1 % (11.6-13.7)
[2021-12-09 07:28] LABS: ANION GAP 11.2 (8-16); CARBON DIOXIDE 23.5 mmol/L (21-32); CREATININE 0.9 mg/dL (0.6-1.3); POTASSIUM 3.7 mmol/L (3.5-5.1)
[2021-12-09 08:00] VITALS: BP 120/65
--- NOTE | 2021-12-09 08:01 | NUR ---
PATIENT HAS BEEN SCREENED AND CATEGORIZED HIGH NUTRITION RISK. PATIENT WILL BE SEEN WITHIN 1-2 DAYS OF ADMISSION. 12/09/[address]
[2021-12-09] MEDS: metroNIDAZOLE 500 MG TAB PO SCH ×3 (08:22→17:08)
[2021-12-09] MEDS: PANTOPRAZOLE 40 MG TABEC PO SCH (08:23)
--- NOTE | 2021-12-09 11:23 | NUR ---
DC PLANN[age] YRS OLD FEMALE PATIENT WAS ADMITTED FROM HOME WITH A DX OF INTRACTABLE ABD PAIN /COLITIS. PATIENT HAS A HX OF COLON CA S/P RESECTION.CT ABD /PELVIS SHOWED COLITIS/PROCTITIS. RAPID COVID TEST NEGATIVE. LACTIC ACID 2.5 ADMINISTERED IVF, IV ABX ROCEPHIN AND FLAGYL AND CONTINUED HOME MEDS. DC PLAN TO GO HOME WHEN STABLE. CM TO FOLLOW.
[2021-12-09] MEDS: NACL 0.9% 1,000 ML IV SCH (13:41)
--- NOTE | 2021-12-09 14:55 | NUR ---
12/09/21 RD INITIAL ASSESSMENT COMPLETED PLEASE REFER TO NUTRITION ASSESSMENT UNDER CARE ACTIVITY FOR ESTIMATED NUTRITIONAL NEEDS. 1. CONTINUE REGULAR DIET TOLERATED 2. MONITOR GI SYMPTOMS 3. RD TO FOLLOW-UP 3-5 DAYS, MODERATE RISK (DOWNGRADED D/T IMPROVED GI SYMPTOMS) TRU [address]
[2021-12-09] MEDS: oxyCODONE/APAP 5/325 MG 1 TAB TAB PO PRN ×2 (15:33→22:09)
[2021-12-09 18:19] VITALS: BP 132/67
--- NOTE | 2021-12-09 19:05 | NUR ---
RECEIVED ENDORSEMENT FROM LINDA THOMAS FOR CONTINUITY OF CARE. PT IS STABLE AND AWAKE. A&OX4. VERBALLY RESPONSIVE AND ABLE TO COMMUNICATE NEEDS. PT REPORTS EPIGASTRIC PAIN RADIATING TOWARDS LOWER CHEST /10. WILL BE MEDICATED PER PRN. ON ROOM AIR WITH NO APPARENT S/SX OF ACUTE DISTRESS. RESPIRATIONS EVEN AND UNLABORED WITH NO APPARENT S/SX OF ACUTE DISTRESS. PT'S IV SITE TO THE LAC 20G IS PATENT/INTACT WITH NS INFUSING AT 40 ML/HR. PT IS AMBULATORY AND CONTINENT OF VOID AND BM. PLAN OF CARE AND WHITE BOARD COMMUNICATION UPDATED. ALL SAFETY MEASURES IN PLACE. BED IN LOW/LOCKED POSITION. CALL LIGHT WITHIN REACH. WILL CONTINUE TO MONITOR.
[2021-12-09 20:00] VITALS: BP 117/67
--- NOTE | 2021-12-09 21:30 | NUR ---
PT C/O 9/10 EPIGASTRIC ABD PAIN. WILL BE MEDICATED PER PRN ORDER.
--- NOTE | 2021-12-09 22:10 | NUR ---
UA SAMPLE COLLECTED PER MD ORDER.
--- NOTE | 2021-12-09 23:05 | NUR ---
CHECKED PT. PT IS STABLE AND ASLEEP IN SUPINE POSITION. CHEST IS RISING AND FALLING EVENLY. RESPIRATIONS EVEN AND UNLABORED WITH NO APPARENT S/SX OF ACUTE DISTRESS. WHITE COMMUNICATION BOARD UPDATED. ALL SAFETY MEASURES IN PLACE. CALL LIGHT WITHIN REACH. WILL CONTINUE TO MONITOR.
--- NOTE | 2021-12-10 00:18 | NUR ---
MESSAGED MD THOMPSON REGARDING PT REQUEST OF MILK OF . WILL CONTINUE TO MONITOR.
--- NOTE | 2021-12-10 01:04 | NUR ---
MD RESPONDED WITH NEW ORDERS TO ADD AMBIEN 5MG PO HS PRN AND MILK OF MAGNESIUM.
--- NOTE | 2021-12-10 01:05 | NUR ---
PATIENT REMAINS IN BED ASLEEP. NO NOTED S/SX OF ACUTE DISTRESS. NO NOTED S/SX OF ACUTE RESPIRATORY DISTRESS. ALL SAFETY MEASURES ARE IN PLACE. CALL LIGHT WITHIN REACH. WILL CONTINUE TO MONITOR.
[2021-12-10] MEDS ORDERED: ZOLPIDEM 5 MG TAB PO PRN (01:35)
[2021-12-10] MEDS ORDERED: MAGNESIUM HYDROXIDE 2400 MG/30 ML UDC PO PRN (01:35)
--- NOTE | 2021-12-10 03:10 | NUR ---
ANSWERED CALL LIGHT. PT C/O 05/14 EPIGASTRIC ABD PAIN. MEDICATED PER PRN ORDER. ASSISTED PT TO THE BR AND PT HAD PEBBLE-LIKE BM AND NO BLOODY STOOL NOTED. PT REPORTS PASSING GAS. RESPIRATIONS EVEN AND UNLABORED WITH NO APPARENT S/SX OF ACUTE DISTRESS. WHITE COMMUNICATION BOARD UPDATED. ALL SAFETY MEASURES IN PLACE. CALL LIGHT WITHIN REACH. WILL CONTINUE TO MONITOR.
[2021-12-10] MEDS: oxyCODONE/APAP 5/325 MG 1 TAB TAB PO PRN (03:40)
[2021-12-10 04:00] VITALS: BP 113/74
--- NOTE | 2021-12-10 05:10 | NUR ---
PATIENT IN BED ASLEEP. EARLIER REQUESTED NOT TO WOKEN UP FOR LAB DRAW. MACHINE CAPTAIN AND NURSE AWARE. NO NOTED S/SX OR RESPIRATORY DISTRESS. NO NOTED ACUTE PAIN/DISCOMFORT. SAFETY MEASURES ARE IN PLACE. CALL LIGHT WITHIN REACH. WILL CONTINUE TO MONITOR.
--- NOTE | 2021-12-10 07:21 | NUR ---
ENDORSED PATIENT TO REEMA RN FOR CONTINUITY OF CARE. PATIENT IS STABLE.
[2021-12-10] MEDS: metroNIDAZOLE 500 MG TAB PO SCH (08:20)
[2021-12-10] MEDS: PANTOPRAZOLE 40 MG TABEC PO SCH (08:20)
[2021-12-10 09:12] LABS: BASOPHILS % (AUTO) 0.5 % (0.0-2.0); EOSINOPHILS # (AUTO) 0.1 K/uL (0-0.4); EOSINOPHILS % (AUTO) 2.5 % (0.0-4.0); HEMATOCRIT 35.9 % (36-48); LYMPHOCYTES % (AUTO) 22.7 % (20.5-51.1); MEAN CORPUSCULAR HEMOGLOBIN 32 pg (27-31); MEAN CORPUSCULAR HGB CONC 33 g/dL (33-37); MEAN CORPUSCULAR VOLUME 97.3 fL (80-94); MONOCYTES # (AUTO) 0.3 K/uL (0.8-1.0); MONOCYTES % (AUTO) 6.8 % (1.7-9.3); NEUTROPHILS # (AUTO) 3.1 K/uL (1.8-7.7); NEUTROPHILS % (AUTO) 67.5 % (42.2-75.2); PLATELET COUNT (AUTO) 232 K/uL (140-450); RED BLOOD CELL COUNT(AUTO) 3.69 MIL/uL (4.20-5.40); RED CELL DISTRIBUTION WIDTH 12.9 % (11.6-13.7); WHITE BLOOD COUNT (AUTO) 4.6 K/uL (4.8-10.8)
[2021-12-10 09:22] LABS: ANION GAP 15.5 (8-16); CARBON DIOXIDE 22.8 mmol/L (21-32); CREATININE 0.9 mg/dL (0.6-1.3); POTASSIUM 3.3 mmol/L (3.5-5.1)
[2021-12-10] MEDS ORDERED: METR-435 PO (10:20)
[2021-12-10] MEDS ORDERED: PANT40EC56 PO (10:20)
[2021-12-10] MEDS ORDERED: CIPR500T4 PO (10:20)
[2021-12-10 12:28] VITALS: BP 117/75
--- NOTE | 2021-12-10 14:45 | NUR ---
DC PLANNING PATIENT IS A 56 YR OLD FEMALE WHO ARRIVED AT [facility]/ED ON 12/08 FOR ABDOMINAL PAIN. CLIENT WAS ADMITTED FOR INTRACTABLE ABDOMINAL PAIN/COLITIS. SW MET WITH PATIENT AT BED SIDE FOR THE PURPOSE OF GATHERING AND COLLECTING COLLATERAL INFORMATION. PATIENT REPORTS LIVING WITH HER IN A HOME. PATIENT REPORTS EMERGENCY CONTACT ISAURA NASCIMENTO AND MEDICAL DECISION MAKER HERSELF. SW INQUIRED ON A.D; CLIENT DECLINED HAVING ONE IN PLACE AND REPORTED THAT SHE IS HER OWN MEDICAL DECISION MAKER AND THAT SHE IS TOO YOUNG AND MAY CONSIDER A.D WHEN SHE TURNS 62 YRS OLD. SW PROVIDED PATIENT WITH INFORMATION AND EDUCATION ON A.D. AND OFFERED PATIENT AD PACKET, PATIENT DECLINED. PATIENT REPORTED THAT SHE HAS PAPERWORK AT HOME WHEN SHE IS READY. PATIENT REPORTS ADEQUATE FRIEND AND FAMILY SUPPORT. PATIENT REPORTS THAT WILL TRANSPORT AND AID IN CARING FOR HER ONCE DISCHARGED. PATIENT REPORTS BEING AMBULATORY WITH ASSISTANCE AND REPORTS THAT SHE HAS A WALKER, WHEELCHAIR AND BEDSIDE COMMODE AT HOME. PATIENT REPORTS NOT HAVING A PCP, HOWEVER, SEES PHYSICIANS REGULARLY AT [facility]. PATIENT REPORTS LAST VISIT TWO WEEKS AGO. SW SPOKE TO CLIENT ABOUT THE IMPORTANCE OF FOLLOW UP CARE ONCE DISCHARGED, CLIENT WAS RECEPTIVE AND REPORTED THAT SHE WOULD FOLLOW UP WITH [facility] ONCE CLEARED FOR DISCHARGE. PATIENT REPORTS NO BARRIERS IN ACQUIRING PRESCRIBED MEDICATION AND REPORTS RECEIVING MEDICATION FROM [facility] (ON ) OR [facility] (ON ) IN THE [facility]. SW INQUIRED ON ADDITIONAL RESOURCES NEEDED; CLIENT DECLINED. SW WILL FOLLOW UP NEEDED.
== END 2021-12-10 13:00 | disposition home or self-care (01) | DRG 720 ==
LOC: MED 02:40 → MTU 07:44
PROVIDERS: ADMIT Hospitalist; ATTEND Hospitalist
DX: A41.9 Sepsis, unspecified organism (principal); E87.2 Acidosis; K52.9 Noninfective gastroenteritis and colitis, unspecified; N39.0 Urinary tract infection, site not specified; E87.6 Hypokalemia; K62.89 Other specified diseases of anus and rectum; Z20.822 Contact with and (suspected) exposure to COVID-19; K76.0 Fatty (change of) liver, not elsewhere classified; Z79.1 Long term (current) use of non-steroidal anti-inflammatories (NSAID); Z79.899 Other long term (current) drug therapy; Z85.038 Personal history of other malignant neoplasm of large intestine; Z79.891 Long term (current) use of opiate analgesic
CPT/HCPCS: 36415; 80048; 80053; 81001; 83540; 83605; 83690; 83735; 84100; 85025; 87040; 87081; 87086; 96361; 96365; 96367; 96375; 97110; 97116; 97163-GP; 97530; 99285; C9113; J0696; J2270; J2405; J2543; J3490; J7030; J7060; Q0163; Q9967